=== PATIENT | male | born 1950 | race Caucasian/White ===

== ENCOUNTER 2017-04-25 13:21 | Emergency (ER) | payer OTHER, MEDICARE, SELFPAY ==
[2017-04-25 13:22] VITALS: BP 126/67; PULSE 65; RESP 16; TEMP 36.8; O2SAT 97; BMI 29.6
--- NOTE | 2017-04-25 13:43 | RAD_ITS ---
STUDY: X-RAY - LEFT FOOT CLINICAL: Male, 66 years old. Severe pain being and little toe. Bruising. TECHNIQUE: 3 view(s) of the foot. COMPARISON: None. FINDINGS: Normal talus, calcaneus, and tarsal bones. Normal visualized subtalar, talonavicular, calcaneocuboid, tarsal and tarsometatarsal articulations. Normal metatarsi. Mild narrowing of the metatarsophalangeal joint of the great toe. Normal tibial and fibular sesamoid bones. Normal interphalangeal joint of the great toe. Normal phalanges of the great toe. Normal second through fifth metatarsophalangeal joints. Normal interphalangeal joints and phalanges of the lesser toes. The soft tissue structures are unremarkable. RAD/Foot min 3 Views IMPRESSION: 1. No acute fracture or dislocation of the left foot. 2. 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 Electronically Signed: Mor Wakefield MD at 14:20 EST , Service support ,
--- NOTE | 2017-04-25 13:46 | ED.VISSUMM ---
- ER Visit Summary Date of Service: 04/25/17 Chief Complaint: Bruising on the foot History of Present Illness: The patient is a 66 M presents to the emergency department with color change of his first and fifth toes on his left foot. The patient saw podiatry about a week ago for the same. He thought it may be because his shoes were too tight. He states he has been wearing them. He states that when he takes them off, the color is normal, but as he puts his foot up, he will notice that his toes appear bruised. It is only the first and fifth toe are most of the pressure is at. He states he has been taking ibuprofen with little improvement. He denies any sudden onset pain. The pain is better when he raises his foot. He denies any trauma. The patient has no history of peripheral vascular disease, but has had questionable prior NC. Physical Examination: Vital signs reviewed General: Well-nourished, well-developed Head: Normocephalic, atraumatic Eyes: Pupils equal and reactive, extraocular muscles intact Neck, supple, no lymphadenopathy Heart: Regular rate and rhythm Respiratory: No distress, clear bilaterally Abdomen: Soft, nontender, nondistended, no peritoneal signs Back: Nontender Extremities: Patient has ecchymosis of the first and fifth toes on the left foot. He has 2+ DP and PT pulses. There is normal capillary refill within the toes. Sensation is preserved. The skin is intact. Skin: Normal color no rash Neuro: Alert and oriented, no focal or lateralizing deficits Test Results: [] Emergency Department Course and Treatment: There is no evidence of vascular insufficiency. He has normal capillary refill and normal pulses of the lower extremities. It does appear to be straightforward bruising. Without definitive history of trauma, I did obtain an x-ray. There is no evidence of acute fracture. I do suspect that where his ecchymosis is this is likely from the toe box of his shoe. Again, I do not suspect a vascular insufficiency. I will place the patient in a postop shoe to relieve the tension. He will be discharged home. Treatment Plan: [] Disposition: Discharged Impression: 1. Left foot contusion This note was generated with [employer] dictation software. It may contain incorrect words, spelling, and punctuation that were not noted in review of the chart prior to signing ED Disposition - Plan for ED Patient: Chief Complaint: Lower Extremity Injury Instructions: ED Contusion Lower Ext Referrals: Pee Kohler [Primary Care Provider] -
[2017-04-25 14:50] VITALS: BP 151/68; PULSE 82; RESP 18
== END 2017-04-25 14:51 | disposition home or self-care (01) ==
LOC: ED 13:57
PROVIDERS: Emergency Provider Emergency Medicine
DX: S90.112A Contusion of left great toe without damage to nail, initial encounter (principal); S90.122A Contusion of left lesser toe(s) without damage to nail, initial encounter; I25.10 Atherosclerotic heart disease of native coronary artery without angina pectoris; I25.2 Old myocardial infarction; I10 Essential (primary) hypertension; Z87.891 Personal history of nicotine dependence; X58.XXXA Exposure to other specified factors, initial encounter; Y93.89 Activity, other specified; Y92.89 Other specified places as the place of occurrence of the external cause; Y99.8 Other external cause status
CPT/HCPCS: 73630; 99283

== ENCOUNTER → 2017-05-06 10:39 | Outpatient (CLI) | payer OTHER, MEDICARE, SELFPAY ==
--- NOTE | 2017-05-06 16:20 | LEAS_ITS ---
Arterial Study - Arterial Study Arterial Study: Bilateral extremity noninvasive arterial exam at rest Right lower extremity The right PT and DP ankle-brachial indices at rest are 1.5 and 1.05 respectively. The digital indices are moderately low at 0.52. The Doppler waveforms for the right posterior tibial and dorsalis pedis are both triphasic. Volume pulse recordings demonstrate nice waveforms low thigh calf and ankle. Digital waveforms are significantly depressed. Digital waveforms notable for depression mostly among the first digit with otherwise relatively well maintained waveforms throughout digits 2 through 5. Left lower extremity Left low thigh index is 1.18. The calf index is 0.71. The left PT and DP ankle -brachial indices at rest are 0.63 and 0.7 with a digital index low at 0.17. The left posterior tibial and dorsalis pedis waveforms are biphasic. The volume pulse recordings suggest reasonable waveforms in the low thigh. The calf waveform is diminished. Ankle waveforms are mildly diminished. Digital waveforms significantly depressed particularly in the first and fifth digits. Impression right lower extremity resting ankle brachial indices and waveforms are normal. Digital findings would suggest significant small vessel disease of the right first digit. Left lower extremity suggest clinically significant occlusive disease of the superficial femoral artery. Findings would be within range of vascular claudication. In addition distally the small vessel digital waveforms of the first and fifth digits are markedly abnormal consistent with distal small vessel disease. Edgard Christiansen M.D., F.A.C.S.
== END ==
DX: I77.1 Stricture of artery (principal)
CPT/HCPCS: 93923

== ENCOUNTER → 2017-05-24 09:52 | Outpatient (CLI) | payer OTHER, MEDICARE, SELFPAY ==
[2017-05-24 12:24] LABS: Cholesterol 199 mg/dL (200); High Density Lipoprotein 37 mg/dL; Triglycerides 223 mg/dL; Very Low Density Lipoprotein 45 mg/dL (5-40)
== END ==
PROVIDERS: Visit Provider Surgery
DX: I25.10 Atherosclerotic heart disease of native coronary artery without angina pectoris (principal)
CPT/HCPCS: 36415; 80061

== ENCOUNTER → 2017-06-03 08:53 | Outpatient (CLI) | payer OTHER, MEDICARE, SELFPAY ==
--- NOTE | 2017-06-03 08:54 | CDU_ITS ---
Reason For Study: Carotid bruit Rt. Velocities/BP Lt. Velocities/BP Prox CCA 80.9/13.5 cm/sec. Prox CCA 83.8/18.8 cm/sec. Mid CCA 89.1/18.2 cm/sec. Mid CCA 90.3/19.3 cm/sec. Dist CCA 96.7/19.3 cm/sec. Dist CCA 89.7/22.3 cm/sec. Prox ICA 78.6/22.3 cm/sec. Prox ICA 86.2/22.9 cm/sec. Mid ICA 92.0/19.9 cm/sec. Mid ICA 74.5/22.3 cm/sec. Dist ICA 65.8/16.8 cm/sec. Dist ICA 65.7/22.3 cm/sec. Rt. ICA/CCA = 1.0. Lt. ICA/CCA = .95. Prox ECA 112.0/17.0 cm/sec. Prox ECA 104.0/12.3 cm/sec. Rt. Vert. 44.6/13.5 cm/sec. Lt. Vert. 35.0/8.3 cm/sec. Right Extracranial There is intimal thickening but no significant atherosclerotic plaque noted in the right common carotid artery. There is homogeneous, smooth atherosclerotic plaque noted in the right internal carotid artery. There is no significant atherosclerotic plaque noted in the right external carotid artery. Antegrade flow is noted in the right vertebral artery. Left Extracranial There is homogeneous, smooth atherosclerotic plaque noted in the left common carotid artery. There is no significant atherosclerotic plaque noted in the left internal carotid artery. There is no significant atherosclerotic plaque noted in the left external carotid artery. Antegrade flow is noted in the left vertebral artery. Procedure Carotid Duplex [id number]. Exam performed in department. Interpretation Summary Smooth right right internal carotid plague with <50% stenosis. Intimal thickening of the left internal carotid with <50% stenosis. Normal flow bilateral external carotids Patent and antegrade vertebrals bilaterally Ordering Physician: Edgard Christiansen Referring Physician: Antonio Kohler M.D. Performed By: Desiree Chin RVT
--- NOTE | 2017-06-03 08:54 | AAAS_ITS ---
Reason For Study: Embolic event Aorta Measurements Aorta Doppler Measurements Proximal aorta measures1.9 x 1.9cm. in cross- Peak systolic flow velocities within the proximal sectional axis. aorta measure 71.1 cm/sec. Proximal aorta measures2.0cm. in longitudinal Peak systolic flow velocities within the mid axis. aorta measure 57.5 cm/sec. Mid aorta measures2.3 x 2.4cm. in cross-sectionalPeak systolic flow velocities within the distal axis. aorta measure 62.9 cm/sec. Mid aorta measures2.4cm. in longitudinal axis. Distal aorta measures2.0 x 2.3cm. in cross- sectional axis. Distal aorta measures2.3cm. in longitudinal axis. Left Iliac Artery Left iliac artery measures 1.6 cm. in the longitudinal axis. Left iliac artery measures 1.6 x 1.6 cm. in the cross-sectional axis. Peak systolic velocity in the left iliac artery measures 137.0 cm/sec. Right Iliac Artery Right iliac artery measures 1.7 cm. in the longitudinal axis. Right iliac artery measures 1.6 x 1.6 cm. in the cross-sectional axis. Peak systolic velocity in the right iliac artery measures 133.0 cm/sec. Procedure Aorta IVC Iliac vasculature or bypass grafts [id number]. Exam performed in department. Interpretation Summary No evidence for aortic aneurysm with mild irregular abdominal aortic plague. 2.3 x 2.4cm Normal bilateral iliacs 1.6 cm on left and 1.7cm on right Ordering Physician: Edgard Christiansen Referring Physician: Antonio Kohler M.D. Performed By: Desiree Chin RVT
== END ==
PROVIDERS: Visit Provider Surgery
DX: I74.3 Embolism and thrombosis of arteries of the lower extremities (principal); R09.89 Other specified symptoms and signs involving the circulatory and respiratory systems; L81.9 Disorder of pigmentation, unspecified
CPT/HCPCS: 76706; 93880

== ENCOUNTER 2017-06-07 07:56 | Day surgery (SDC) | payer OTHER, MEDICARE, SELFPAY ==
[2017-06-04 08:20] VITALS: BMI 29.5
[2017-06-07 08:16] LABS: Hematocrit 47.2 % (40-54); Hemoglobin 15.9 g/dl (13.0-16.5); Mean Corp Hgb Conc 33.7 g/gl (32-36); Mean Corpuscular Hgb 30.2 pg (27.0-32.0); Mean Corpuscular Volume 89.6 fL (80-94); Mean Platelet Vol. 9.8 fl (6.2-12.0); Platelet Count 296 K/mm3 (150-450); RBC Distribution Width CV 14.7 % (11.6-14.6); RBC Distribution Width SD 48.3 fl (35.1-43.9); Red Blood Count 5.27 M/mm3 (4.6-6.2); White Blood Count 8.2 K/mm3 (4.4-11.0)
[2017-06-07 08:18] LABS: Scan Indicated on CBC? Y/N NO
[2017-06-07 08:32] LABS: Anion Gap 5 (5-15); BUN 17 mg/dL (7-18); BUN/Creat Ratio 14.7 RATIO (10-20); Calcium,Total 8.7 mg/dL (8.5-10.1); Chloride 110 mmol/L (98-107); Creatinine, Serum 1.16 mg/dL (0.70-1.30); EST Glomerular Filtration Rate 66 mL/min (>60); Est Glom Filt Rate - Afr Amer 80 mL/min (>60); Estimated Creatinine Clearance 64.91 ml/min; Glucose 144 mg/dL (74-106); Potassium 4.2 mmol/L (3.5-5.1); Sodium Level 143 mmol/L (136-145)
--- NOTE | 2017-06-07 11:34 | PCM.OPRPT ---
Problem List (1) PAD (peripheral artery disease) Status: Acute Report of Operation Date of Procedure: 06/07/17 Pre-Operative Diagnosis: Critical ischemia left foot Post-Operative Diagnosis: Left superficial femoral artery occlusion. Minimal ectasia of bilateral external iliac arteries Surgery/Procedure Performed:: Abdominal pelvic bilateral lower extremity arteriogram. Left superficial femoral artery 4 x 2 Powerflex angioplasty. Left superficial femoral artery LXM turbo Hawk atherectomy. Left superficial femoral artery 6 x 60 mm Lutonix angioplasty Description of Surgical Findings:: Timeout and informed consent was obtained. 66-year-old gentleman was taken to the special procedures lab. He was placed on the table. Bilateral groins were sterilely prepped and draped. He received 50 mcg of fentanyl 2 mg Versed is intravenous sedation. Under ultrasound inspection the right groin was inspected the right common femoral artery identified 2% lidocaine was instilled under ultrasound guidance. Under ultrasound guidance 2% lidocaine was instilled. Micropuncture needle was inserted under ultrasound guidance. Micropuncture wire inserted. A 6 [place] short sheath dilator was inserted 035 angled Glidewire was used to place a 5 [place] universal flush catheter in the abdominal aorta at the level of the renals. Using Visipaque contrast the rate of 15 cc a second for 20 cc an AP aortogram was obtained. The catheter was then withdrawn to the left external iliac and using a angled Glidewire the catheter was advanced to the left distal external iliac static views of the left thyroid obtained. Then using the Glidewire the catheter was advanced in the left superficial femoral artery. Static views were then obtained of the left lower extremity. Having achieved this there is evidence of occlusion of the left mid to distal superficial femoral artery. So initially placed an 035 Magic wire I then initially placed a 6 [place] 45 cm sheath. I then used a 018 Quick cross catheter and a 014 command wire gain access to the area of complete occlusion. I then placed an 035 Quick cross catheter. Placed an 035 Magic wire. I used a exchange sheath exchange out for a 7 [place] destination sheath. I then performed 4 x 4 millimeter Powerflex angioplasty. Imaging demonstrated minimal improvement but now patency of the lumen. I then used the 4 x 40 mm balloon to be a carrier for a 6 mm spider wire which I placed the level of the popliteal. It is of note that as soon as the larger sheaths 6 [place] sheath were then I gave 10,000 units and based upon ongoing ACT measurements I gave an additional 2000 units of heparin in 1000 unit aliquots. I then performed LXM [place] Hawk atherectomy of the area of SFA occlusion. Proximal to this there was a focal area of calcification that I treated. Distally there appear to be some exophytic plaque and possibly thrombus which I treated. After several passes in good material being obtained the patient was carefully monitored. I continue to obtain spot images assuring no compromise. He tolerated that well. After I felt that I done a significant amount of debulking I then placed a 6 x 60 mm Lutonix and perform balloon angioplasty up to 12 dk of pressure. I believe that the size of the vessel actually likely was 7 mm but I did not want to over size after the reasonably aggressive atherectomy. Upon completion the area of complete occlusion was completely resolved. There is a small area of dissection just distally to this but is not flow limiting. I did not feel that additional treatment required at this setting. I finished images of the left lower extremity then we withdrew the 7 [place] destination sheath of the right external reactive be obtained static views of the right lower extremity. Having achieved that I then used a minx device. I put the minx sheath and had good blood flow secure that device. I inserted the minx balloon. Balloon was inflated and withdrawn. Good capture was felt to been achieved. Then the material was deployed the device was allowed to rest. The balloon was deflated. The device was withdrawn. But the minx thrombostatic material seemed to be exposed with the sheath. So direct pressure was held for hemostasis. I then at this time did give 20 mg of protamine to assist. Blood loss minimal he tired procedure well very comfortable with the left foot very viable he was taken to recovery or insect condition apparent complication Images demonstrate widely patent abdominal aorta and bilateral renals. There is very mild ectasia of bilateral external iliacs. I did not demonstrate any definitive plaque ulceration or occlusion. The left mid to distal superficial femoral artery is occluded over a length of about 3-1/2 cm. Collateral flow is identified. There is initial three-vessel runoff to the left lower extremity. The right lower extremity has a patent superficial femoral artery popliteal and three-vessel runoff. Subsequent to the angioplasty and atherectomy and drug-coated balloon treatment of the left superficial femoral artery there is now resolved occlusion. There is limited nonflow limiting dissection. Impression successfully treated occluded left superficial femoral artery. Bilateral lower extremity suggest patent three-vessel infrageniculate runoff. There is very minimal ectasia bilateral external iliacs. I suspect that the occlusion of the left superficial femoral artery or possible thrombus related to this was likely the source of the emboli that occurred to the toes of the patient's left foot causing him to present for treatment. Edgard Christiansen M.D., F.A.C.S.
[2017-06-07 11:40] LABS: ACT Activated Clotting Time 131 sec (74-137)
[2017-06-07 11:40] LABS: ACT Activated Clotting Time 246 sec (74-137)
--- NOTE | 2017-06-07 11:47 | OP.PCM_ITS ---
Problem List (1) PAD (peripheral artery disease) Status: Acute Report of Operation Date of Procedure: 06/07/17 Pre-Operative Diagnosis: Critical ischemia left foot Post-Operative Diagnosis: Left superficial femoral artery occlusion. Minimal ectasia of bilateral external iliac arteries Surgery/Procedure Performed:: Abdominal pelvic bilateral lower extremity arteriogram. Left superficial femoral artery 4 x 2 Powerflex angioplasty. Left superficial femoral artery LXM turbo Hawk atherectomy. Left superficial femoral artery 6 x 60 mm Lutonix angioplasty Description of Surgical Findings:: Timeout and informed consent was obtained. 66-year-old gentleman was taken to the special procedures lab. He was placed on the table. Bilateral groins were sterilely prepped and draped. He received 50 mcg of fentanyl 2 mg Versed is intravenous sedation. Under ultrasound inspection the right groin was inspected the right common femoral artery identified 2% lidocaine was instilled under ultrasound guidance. Under ultrasound guidance 2% lidocaine was instilled. Micropuncture needle was inserted under ultrasound guidance. Micropuncture wire inserted. A 6 [place] short sheath dilator was inserted 035 angled Glidewire was used to place a 5 [place] universal flush catheter in the abdominal aorta at the level of the renals. Using Visipaque contrast the rate of 15 cc a second for 20 cc an AP aortogram was obtained. The catheter was then withdrawn to the left external iliac and using a angled Glidewire the catheter was advanced to the left distal external iliac static views of the left thyroid obtained. Then using the Glidewire the catheter was advanced in the left superficial femoral artery. Static views were then obtained of the left lower extremity. Having achieved this there is evidence of occlusion of the left mid to distal superficial femoral artery. So initially placed an 035 Magic wire I then initially placed a 6 [place] 45 cm sheath. I then used a 018 Quick cross catheter and a 014 command wire gain access to the area of complete occlusion. I then placed an 035 Quick cross catheter. Placed an 035 Magic wire. I used a exchange sheath exchange out for a 7 [place] destination sheath. I then performed 4 x 4 millimeter Powerflex angioplasty. Imaging demonstrated minimal improvement but now patency of the lumen. I then used the 4 x 40 mm balloon to be a carrier for a 6 mm spider wire which I placed the level of the popliteal. It is of note that as soon as the larger sheaths 6 [place] sheath were then I gave 10,000 units and based upon ongoing ACT measurements I gave an additional 2000 units of heparin in 1000 unit aliquots. I then performed LXM [place] atherectomy of the area of SFA occlusion. Proximal to this there was a focal area of calcification that I treated. Distally there appear to be some exophytic plaque and possibly thrombus which I treated. After several passes in good material being obtained the patient was carefully monitored. I continue to obtain spot images assuring no compromise. He tolerated that well. After I felt that I done a significant amount of debulking I then placed a 6 x 60 mm Lutonix and perform balloon angioplasty up to 12 dk of pressure. I believe that the size of the vessel actually likely was 7 mm but I did not want to over size after the reasonably aggressive atherectomy. Upon completion the area of complete occlusion was completely resolved. There is a small area of dissection just distally to this but is not flow limiting. I did not feel that additional treatment required at this setting. I finished images of the left lower extremity then we withdrew the 7 [place] destination sheath of the right external reactive be obtained static views of the right lower extremity. Having achieved that I then used a minx device. I put the minx sheath and had good blood flow secure that device. I inserted the minx balloon. Balloon was inflated and withdrawn. Good capture was felt to been achieved. Then the material was deployed the device was allowed to rest. The balloon was deflated. The device was withdrawn. But the minx thrombostatic material seemed to be exposed with the sheath. So direct pressure was held for hemostasis. I then at this time did give 20 mg of protamine to assist. Blood loss minimal he tired procedure well very comfortable with the left foot very viable he was taken to recovery or insect condition apparent complication Images demonstrate widely patent abdominal aorta and bilateral renals. There is very mild ectasia of bilateral external iliacs. I did not demonstrate any definitive plaque ulceration or occlusion. The left mid to distal superficial femoral artery is occluded over a length of about 3-1/2 cm. Collateral flow is identified. There is initial three-vessel runoff to the left lower extremity. The right lower extremity has a patent superficial femoral artery popliteal and three-vessel runoff. Subsequent to the angioplasty and atherectomy and drug-coated balloon treatment of the left superficial femoral artery there is now resolved occlusion. There is limited nonflow limiting dissection. Impression successfully treated occluded left superficial femoral artery. Bilateral lower extremity suggest patent three-vessel infrageniculate runoff. There is very minimal ectasia bilateral external iliacs. I suspect that the occlusion of the left superficial femoral artery or possible thrombus related to this was likely the source of the emboli that occurred to the toes of the patient's left foot causing him to present for treatment. Edgard Christiansen M.D., F.A.C.S.
[2017-06-07 15:00] VITALS: BP 149/74; PULSE 57; RESP 18; TEMP 36.6; O2SAT 95
[2017-06-07 16:00] VITALS: BP 153/68; PULSE 47; RESP 18; TEMP 36.6; O2SAT 94
[2017-06-07 17:00] VITALS: BP 165/75; PULSE 48; RESP 18; TEMP 36.4; O2SAT 97
[2017-06-07 17:50] VITALS: BP 158/70; PULSE 60; RESP 18; TEMP 36.6; O2SAT 96
--- NOTE | 2017-06-07 18:02 | NURSING ---
AMBULATED PT WITH NO COMPLICATIONS. RIGHT GROIN SITE SOFT AND DSG C/D/I
[2017-06-08 07:20] LABS: ACT Activated Clotting Time 246 sec (74-137)
== END 2017-06-07 18:10 | disposition home or self-care (01) ==
LOC: CLSP 07:56 → PCU 14:43
PROVIDERS: Visit Provider Surgery
DX: I73.9 Peripheral vascular disease, unspecified (principal); J44.9 Chronic obstructive pulmonary disease, unspecified; I25.10 Atherosclerotic heart disease of native coronary artery without angina pectoris; I25.2 Old myocardial infarction; F17.200 Nicotine dependence, unspecified, uncomplicated; Z79.82 Long term (current) use of aspirin
CPT/HCPCS: 36200; 36245; 36246; 36415; 37225; 75625; 75716; 76937; 80048; 85027; 85347; 99152; 99153; C1760; C2623; J3010; J7030; J7040; Q9967; C1714; C1725; C1769; C1884; C1887; C1894

== ENCOUNTER → 2017-07-01 11:04 | Outpatient (CLI) | payer OTHER, MEDICARE, SELFPAY ==
--- NOTE | 2017-07-02 05:26 | LEAS ---
Arterial Study - Arterial Study Arterial Study: Bilateral lower extremity noninvasive arterial exam with exercise Patient with history of left lower extremity endovascular intervention/angioplasty Claudication Impression right lower extremity The right PT and DP ankle-brachial indices at rest are 1.27 and 1.25 respectively with a slightly diminished digital index of 0.55. The right PT and DP ankle-brachial Doppler waveforms are triphasic. Volume pulse recordings demonstrate normal amplification the calf the ankle waveforms are well maintained on the digital waveforms are significantly depressed. With exercise the right SIDNEY goes from resting 1.272 immediately after exercise at 1.31 which is normal. Left lower extremity The left PT and DP ankle-brachial indices at rest are 1.06 and 1.2 respectively the digital index 0.55 the left posterior tibial and dorsalis pedis Doppler waveforms are triphasic volume pulse recordings demonstrate normal amplification of the calf the ankle and digits have normal waveforms with exercise left SIDNEY goes from resting 1.2 immediately after exercise at 1.23 Impression Normal bilateral lower extremity large vessel noninvasive exam. Normal response to exercise. Abnormal digital waveforms on the right consistent with distal small vessel disease. Mild small vessel disease distally on the left Edgard Christiansen M.D., F.A.C.S.
--- NOTE | 2017-07-02 05:29 | LEAS_ITS ---
Arterial Study - Arterial Study Arterial Study: Bilateral lower extremity noninvasive arterial exam with exercise Patient with history of left lower extremity endovascular intervention/ angioplasty Claudication Impression right lower extremity The right PT and DP ankle-brachial indices at rest are 1.27 and 1.25 respectively with a slightly diminished digital index of 0.55. The right PT and DP ankle-brachial Doppler waveforms are triphasic. Volume pulse recordings demonstrate normal amplification the calf the ankle waveforms are well maintained on the digital waveforms are significantly depressed. With exercise the right SIDNEY goes from resting 1.272 immediately after exercise at 1.31 which is normal. Left lower extremity The left PT and DP ankle-brachial indices at rest are 1.06 and 1.2 respectively the digital index 0.55 the left posterior tibial and dorsalis pedis Doppler waveforms are triphasic volume pulse recordings demonstrate normal amplification of the calf the ankle and digits have normal waveforms with exercise left SIDNEY goes from resting 1.2 immediately after exercise at 1.23 Impression Normal bilateral lower extremity large vessel noninvasive exam. Normal response to exercise. Abnormal digital waveforms on the right consistent with distal small vessel disease. Mild small vessel disease distally on the left Edgard Christiansen M.D., F.A.C.S.
== END ==
PROVIDERS: Visit Provider Surgery
DX: I73.9 Peripheral vascular disease, unspecified (principal)
CPT/HCPCS: 93923

== ENCOUNTER 2017-07-09 03:01 | Inpatient (IN) | payer OTHER, MEDICARE, SELFPAY ==
[2017-07-09] VITALS (11 sets, daily range): BP systolic 106–129; BP diastolic 55–70; PULSE 58–108; RESP 16–22; TEMP 36.6–39.3; O2SAT 91–97; BMI 28.8; BMI 27.2
--- NOTE | 2017-07-09 03:04 | EKG12_ITS ---
Test Reason : Blood Pressure : / mmHG Vent. Rate : 104 BPM Atrial Rate : 104 BPM P-R Int : 172 ms QRS Dur : 112 ms QT Int : 382 ms P-R-T Axes : 062 -68 085 degrees QTc Int : 502 ms Sinus tachycardia Left axis deviation /LAHB Incomplete left bundle branch block Abnormal ECG Confirmed by JUDAH BREWSTER ([id number]), acquisition editor RADHA CARRANZA ([id number] on 07/13/2017 2:40:06 PM Referred By: Edgard Christiansen Confirmed By:JUDAH BREWSTER
--- NOTE | 2017-07-09 03:04 | RAD_ITS ---
STUDY: X-RAY CHEST REASON FOR EXAM: Male, 66 years old. Sweating and shortness of breath. TECHNIQUE: Single AP portable view of the chest. COMPARISON: Prior comparison studies are not available for review at this time. FINDINGS: There are slightly prominent markings probably chronic. No focal infiltrate is seen. There is no demonstrated pleural abnormality. Normal size heart. Normal mediastinum and izabella. Normal visualized pulmonary arteries. There is mild atherosclerotic tortuosity of the aortic arch and descending thoracic aorta. There are degenerative changes of the visualized thoracic spine. There are mild degenerative changes in the right acromioclavicular joint. There is no demonstrated abnormality of the visualized soft tissue structures of the upper abdomen. RAD/Chest 1 View (Portable) IMPRESSION: No active pulmonary disease. Electronically Signed: Jl Talley MD at 3:23 EDT Tel , Service support ,
--- NOTE | 2017-07-09 03:07 | NURSING ---
NO OLD EKG
[2017-07-09] MEDS: Aspirin 81 MG TAB.CHEW 324 MG PO (03:13)
--- NOTE | 2017-07-09 03:26 | ED.VISSUMM ---
- ER Visit Summary Date of Service: 07/09/17 Chief Complaint: Shortness of breath History of Present Illness: The patient is a 66 M who presents with shortness of breath. states over the past couple of days he has not been feeling well. He has been having issues with constipation and abdominal pain. She was in the other room early this morning when she knows that he was having trouble breathing and he was exhaling very hard. He has no history of COPD. He does not wear home oxygen. He currently denies any chest pain. He had a recent femoral artery ballooning for a critical stenosis that was causing limb ischemia. There have been no issues with that. did note that he was confused this morning and she called EMS. Physical Examination: Vital signs are reviewed and are remarkable for temperature of 102.8 [place] gentleman who is mildly diaphoretic. HEENT exam unremarkable. Heart is tachycardic and regular rhythm without murmurs. Lungs are clear to auscultation bilaterally. Abdomen soft nontender. Extremities reveal no edema. He has good sensation pulses in his feet. The groin areas are clean dry and intact without any infection. Neurologic exam reveals he is alert and oriented ?2. He thinks it is 1980. He moves all 4 extremities equally. Test Results: EKG is normal sinus rhythm with a rate of 104. No ST changes. Chest x-ray unremarkable. Labs unremarkable except for lactate 3.1. Urine is nitrite positive Emergency Department Course and Treatment: Patient was given 2 L of normal saline. Feel he has severe sepsis secondary to UTI. She will be treated with IV Rocephin and admitted to the hospital Treatment Plan: [] Disposition: Admit Impression: Severe sepsis, UTI This note was generated with [employer] dictation software. It may contain incorrect words, spelling, and punctuation that were not noted in review of the chart prior to signing ED Disposition - Plan for ED Patient: Chief Complaint: Shortness of Breath Referrals: Pee Kohler [Primary Care Provider] -
[2017-07-09 03:29] LABS: Absolute Lymphocyte Count 1.02 X10^3/ul (0.83-4.51); Absolute Neutrophil Count 8.4 X10^3/uL (2.0-7.7); Eosinophil# 0.01 X10^3/uL; Eosinophils% 0.1 % (0-5); Hematocrit 45.9 % (40-54); Hemoglobin 15.7 g/dl (13.0-16.5); Lymphocyte # 1.02 X10^3/ul (4.0); Lymphocyte % 10.4 % (19-41); Mean Corp Hgb Conc 34.2 g/gl (32-36); Mean Corpuscular Hgb 30.3 pg (27.0-32.0); Mean Corpuscular Volume 88.6 fL (80-94); Mean Platelet Vol. 9.5 fl (6.2-12.0); Monocyte# 0.36 X10^3/uL; Monocyte% 3.7 % (0-10); Neutrophil # 8.41 X10^3/uL (2.7-7.7); Neutrophil % 85.5 % (47-70); Platelet Count 226 K/mm3 (150-450); RBC Distribution Width CV 14.4 % (11.6-14.6); RBC Distribution Width SD 46.7 fl (35.1-43.9); Red Blood Count 5.18 M/mm3 (4.6-6.2); White Blood Count 9.8 K/mm3 (4.4-11.0)
[2017-07-09 03:30] LABS: POSITIVE COUNT NO; POSITIVE DIFFERENTIAL NO; POSITIVE MORPHOLOGY NO
[2017-07-09] MEDS: 0.9% Normal Saline 1,000 ML 999 ML IV ×3 (03:30→12:28)
[2017-07-09 03:51] LABS: Anion Gap 10 (5-15); BUN 15 mg/dL (7-18); BUN/Creat Ratio 12.4 RATIO (10-20); Calcium,Total 8.7 mg/dL (8.5-10.1); Chloride 108 mmol/L (98-107); Creatinine, Serum 1.21 mg/dL (0.70-1.30); EST Glomerular Filtration Rate 63 mL/min (>60); Est Glom Filt Rate - Afr Amer 77 mL/min (>60); Estimated Creatinine Clearance 62.23 ml/min; Glucose 153 mg/dL (74-106); Potassium 3.9 mmol/L (3.5-5.1); Sodium Level 140 mmol/L (136-145)
[2017-07-09 03:57] LABS: Lactic Acid 3.1 mmol/L (0.4-2.0)
--- NOTE | 2017-07-09 04:00 | ED.RN ---
LAB CALLS WITH CRITICAL RESULT, LACTIC ACID 3.1, DR. CHRISTENSEN MADE AWARE.
[2017-07-09 04:39] LABS: Color, Urine Amber (Yellow); Glucose, Dipstick Normal (Normal); Ketone-Dipstick 5 mg/dl (Negative); Leukocyte Esterase-Dipstick 25 /ul (Negative); Nitrite-Dipstick Positive (Negative); Occult Blood-Urine 25 /ul (Negative); Protein-Dipstick 30 mg/dl (Negative); Urine Clarity Sl. Cloudy (Clear); Urine Urobilinogen 4 mg/dl (Normal)
[2017-07-09 04:44] LABS: Mucous, Urine 2+ /hpf (<or=2+); Urine Bilirubin Dipstick 1 mg/dL (Negative)
[2017-07-09 04:45] LABS: Bacteria RARE /hpf (None Seen); Red Blood Cells-Urine 0-5 SEEN /hpf (0-5); Squamous Epithelial Cells - UA 0-5 SEEN /hpf (0-5); White Blood Cells 0-5 SEEN /hpf (0-5)
--- NOTE | 2017-07-09 05:51 | HP.PCM_ITS ---
Problem List (1) COPD exacerbation Status: Acute (2) UTI (urinary tract infection) Status: Acute (3) Hyperlipidemia Status: Chronic (4) Atherosclerotic heart disease of [place] coronary artery without angina pectoris Status: Chronic (5) Old myocardial infarction Status: Chronic (6) Tobacco abuse Status: Acute (7) COPD (chronic obstructive pulmonary disease) Status: Acute Qualifiers: (8) PAD (peripheral artery disease) Status: Acute (9) Inguinal hernia of left side without obstruction or gangrene Status: Acute History of Present Illness Date of Admission: 07/09/17 Chief Complaint: Shortness of breath today The patient is a 66 year old M with history of COPD mentioned in our record although patient denies, history of chronic smoking about 46 pack years of smoking was brought in by EMS for severe shortness of breath and labored breathing. As per the , patient has been short of breath for last 2 days and not able to sleep well although patient denies. Denies cough, fever or chills. No chest pain. In the ED, found to have fever 102.8 Fahrenheit, tachycardic 108/min, tachypneic 22/min and pulse ox 91% on room air. EKG sinus tachycardia, LAD with incomplete left bundle branch block. [] Past Medical History Past Medical History (Chronic Problems): Chronic Problems (Last Reviewed 06/17/17 @ 09:53 by Francesca Hall) Hyperlipidemia (Chronic) Atherosclerotic heart disease of [place] coronary artery without angina pectoris (Chronic) Old myocardial infarction (Chronic) Allergies clopidogrel [From Plavix] Allergy (Mild, Verified 07/09/17 03:07) rash Home Medications: Ambulatory Orders Medication Instructions Recorded aspirin 81 mg tablet,delayed 81 mg PO QDAY tab 05/21/17 release Smoking Status: Current every day smoker - *Family History Paternal History Items: No pertinent history Review of Systems Constitutional: Denies: Chills, Fever, Weight Change HEENT: Denies: Head Aches, Sinus Congestion, Sinus Drainage Cardiovascular: Denies: Chest Pain, Palpitations Respiratory: Reports: Shortness of breath upon exertion, Wheezing. Denies: Cough, Shortness of breath at rest, Sputum production Gastrointestinal: Denies: Abdominal Pain, Nausea, Vomiting Genitourinary: Denies: Dysuria, Frequency, Hematuria Musculoskeletal: Denies: Joint Pain, Joint Tenderness Skin: Denies: Rash, Wounds Neurological: Denies: Numbness, Tingling, Focal weakness Psychiatric: Denies: Anxiety, Depression, Homicidal Ideations, Suicidal Ideations Hematologic/ Lymphatic: Denies: Easy Bruising, Easy Bleeding VTE Information - Inpt Only VTE Present on Admission: No VTE Mechan Device Prophylaxis: SCD's VTE Pharm Prophylaxis ordered?: Yes Patient Problems: Active and Suspected Problems (Last Reviewed 06/17/17 @ 09:53 by Francesca Hall) COPD exacerbation (Acute) UTI (urinary tract infection) (Acute) - Physical Exam General: Alert, Oriented x3, Cooperative HEENT: Atraumatic, PERRLA, EOMI, Normocephalic Oral: Dry Mucosa Neck: Supple, No JVD, Negative Carotid Bruits Lungs: Diminished, Tachypneic, Wheezes - Expiratory wheezing Cardiovascular: Regular rate, Regular Rhythm, Normal S1, Normal S2, No murmurs Abdomen: Bowel Sounds Present, Soft, Non Tender, Non-Distended Extremities: No edema, Capillary Refill Less than 3 Seconds Skin: No rashes, No breakdown Musculoskeletal: No Tenderness to Palpation of Joints or Extremities, Arthritic Changes Neurological: Cranial nerves II-XII grossly intact Psych/Mental Status: Normal Affect, Appropriate Vital Signs Temp Pulse Resp BP Pulse Ox 98.1 F 72 20 H 117/59 L 93 07/09/17 05:23 07/09/17 05:23 07/09/17 05:23 07/09/17 05:23 07/09/17 05:23 Oxygen Flow Rate (L/min) 2 Oxygen Delivery Method Nasal Cannula Weight: 206 lb 12.697 oz Body Mass Index (BMI) 28.8 Laboratory Tests Past 24 Hrs 07/09/17 07/09/17 07/09/17 03:05 03:05 03:05 WBC 9.8 RBC 5.18 Hgb 15.7 Hct 45.9 MCV 88.6 MCH 30.3 MCHC 34.2 RDW 14.4 RDW Differential 46.7 H Plt Count 226 MPV 9.5 Immature Gran % (Auto) 0.300 Neut % (Auto) 85.5 H Lymph % (Auto) 10.4 L [place] % (Auto) 3.7 Eos % (Auto) 0.1 Baso % (Auto) 0.0 Absolute Neuts (auto) 8.4 H Absolute Lymphs (auto) 1.02 Total Counted Not Reportable Sodium 140 Potassium 3.9 Chloride 108 H Carbon Dioxide 22.0 Anion Gap 10 BUN 15 Creatinine 1.21 Estim Creat Clear Calc 62.23 Est GFR (MDRD) Af Amer 77 Est GFR (MDRD) Non-Af 63 BUN/Creatinine Ratio 12.4 Glucose 153 H Lactic Acid 3.1 H Calcium 8.7 Troponin I < 0.02 Urine Color Urine Clarity Urine pH Ur Specific [place] Urine Protein Urine Glucose (UA) Urine Ketones Urine Occult Blood Urine Nitrite Urine Bilirubin Urine Urobilinogen Ur Leukocyte Esterase Urine RBC Urine WBC Ur Squamous Epith Cells Urine Bacteria Urine Mucus 07/09/17 04:22 WBC RBC Hgb Hct MCV MCH MCHC RDW RDW Differential Plt Count MPV Immature Gran % (Auto) Neut % (Auto) Lymph % (Auto) [place] % (Auto) Eos % (Auto) Baso % (Auto) Absolute Neuts (auto) Absolute Lymphs (auto) Total Counted Sodium Potassium Chloride Carbon Dioxide Anion Gap BUN Creatinine Estim Creat Clear Calc Est GFR (MDRD) Af Amer Est GFR (MDRD) Non-Af BUN/Creatinine Ratio Glucose Lactic Acid Calcium Troponin I Urine Color [place] Urine Clarity Sl. Cloudy Urine pH 6.0 Ur Specific [place] 1.020 Urine Protein 30 H Urine Glucose (UA) Normal Urine Ketones 5 H Urine Occult Blood 25 H Urine Nitrite Positive H Urine Bilirubin 1 H Urine Urobilinogen 4 H Ur Leukocyte Esterase 25 H Urine RBC 0-5 SEEN Urine WBC 0-5 SEEN Ur Squamous Epith Cells 0-5 SEEN Urine Bacteria RARE Urine Mucus 2+ Assessment/Plan Active and Suspected Problems (Last Reviewed 06/17/17 @ 09:53 by Francesca Hall) COPD exacerbation (Acute) UTI (urinary tract infection) (Acute) The patient is a 66 year old M with history of COPD mentioned in our record although patient denies, history of chronic smoking about 46 pack years of smoking was brought in by EMS for severe shortness of breath and labored breathing. As per the , patient has been short of breath for last 2 days and not able to sleep well although patient denies. Denies cough, fever or chills. No chest pain. In the ED, found to have fever 102.8 Fahrenheit, tachycardic 108/min, tachypneic 22/min and pulse ox 91% on 2 L of oxygen. EKG sinus tachycardia, LAD with incomplete left bundle branch block. Lactic acid was found elevated 3.1 although WBC count normal. UA positive of nitrite and LE although WBC normal. Denies lower urinary tract symptoms. 1. Acute hypoxic respiratory failure most probably secondary to COPD exacerbation: Patient is being admitted on MedSurg floor. Oxygen therapy keep pulse ox 90%. ABG ordered to look for chronic CO2 retention. Bicarb in BMP is normal. 2. COPD: Clinically it seems patient has COPD with 46 pack years of smoking and chest x-ray shows chronic interstitial changes. Patient also had PFT but results not available. On bronchodilator. IV Solu-Medrol, Mucinex, incentive spirometry and chest physiotherapy. 3. SIRS ( fever 102.8 Fahrenheit, tachycardic 108/min, tachypneic 22/min and pulse ox 91% on 2 L of oxygen) lactic acid 3.1 possible secondary to COPD with moderate acute bronchitis/UTI: Patient started on IV Rocephin and Zithromax. Blood cultures ?2, urine culture and sputum culture ordered. Respiratory panel ordered. 4. Other chronic comorbidities include coronary artery disease, peripheral arterial disease and dyslipidemia: Patient had cardiac cath in the past and showed probably calcified artery not amenable to stent as per the history. Home medication reconciliation done. [] Laboratory Results 07/09/17 03:05: WBC 9.8, RBC 5.18, Hgb 15.7, Hct 45.9, MCV 88.6, MCH 30.3, MCHC 34.2, RDW 14.4, RDW Differential 46.7 H, Plt Count 226, MPV 9.5, Immature Gran % (Auto) 0.300, Neut % (Auto) 85.5 H, Lymph % (Auto) 10.4 L, [place] % (Auto) 3.7, Eos % (Auto) 0.1, Baso % (Auto) 0.0, Absolute Neuts (auto) 8.4 H, Absolute Lymphs (auto) 1.02, Total Counted Not Reportable 07/09/17 03:05: Sodium 140, Potassium 3.9, Chloride 108 H, Carbon Dioxide 22.0, Anion Gap 10, BUN 15, Creatinine 1.21, Estim Creat Clear Calc 62.23, Est GFR ( MDRD) Af Amer 77, Est GFR (MDRD) Non-Af 63, BUN/Creatinine Ratio 12.4, Glucose 153 H, Calcium 8.7, Troponin I < 0.02 07/09/17 03:05: Lactic Acid 3.1 H 07/09/17 04:22: Urine Color [place], Urine Clarity Sl. Cloudy, Urine pH 6.0, Ur Specific [place] 1.020, Urine Protein 30 H, Urine Glucose (UA) Normal, Urine Ketones 5 H, Urine Occult Blood 25 H, Urine Nitrite Positive H, Urine Bilirubin 1 H, Urine Urobilinogen 4 H, Ur Leukocyte Esterase 25 H, Urine RBC 0-5 SEEN, Urine WBC 0-5 SEEN, Ur Squamous Epith Cells 0-5 SEEN, Urine Bacteria RARE, Urine Mucus 2+ Clinical Impression(s) from Imaging Studies Chest X-Ray 07/09/17 03:04 IMPRESSION: No active pulmonary disease. Electronically Signed: Jl Talley MD at 3:23 EDT Tel , Service support , Code Visit Inpatient E&M: 29574 Init Hosp L3
[2017-07-09] MEDS: Ipratropium/Albuterol Sulfate 3 ML AMPUL.NEB INHALATION ×2 (06:37→18:46)
[2017-07-09 06:56] LABS: Bedside Glucose 179 mg/dL (70-110)
[2017-07-09 07:01] LABS: Allen Test POS; Base Excess -4 mmol/L (-2 to +2); Bicarbonate 20.3 mmol/L (22-26); Blood Gas Specimen Type ART; O2 Delivery Device Nasal Can; PO2 71 mmHG (75-100); SITE L Radial; SO2 95 % (95-99); Time Given 650; Total Carbon Dioxide 21 mmol/L; pCO2 29.8 mmHg (35-45); pH 7.44 (7.35-7.45)
[2017-07-09 07:04] LABS: Lactic Acid 2.8 mmol/L (0.4-2.0)
[2017-07-09 07:19] LABS: Reflex Lactate? Y
[2017-07-09] MEDS: 0.9% Normal Saline 1,000 ML 125 ML IV ×2 (07:56→20:28)
[2017-07-09] MEDS: Aspirin E.C. 81 MG Tablet PO (07:57)
[2017-07-09] MEDS: guaiFENesin 1,200 MG Tablet 1200 MG PO ×2 (07:57→22:12)
[2017-07-09] MEDS: Polyethylene Glycol 3350 17 GM PACKET PO (07:58)
[2017-07-09] MEDS: predniSONE 20 MG Tablet 40 MG PO (10:13)
[2017-07-09 10:33] LABS: Reflex Lactate? Y
[2017-07-09 11:35] LABS: Bedside Glucose 294 mg/dL (70-110)
[2017-07-09 11:37] LABS: Lactic Acid 3.1 mmol/L (0.4-2.0)
--- NOTE | 2017-07-09 11:48 | PCM.PN.HOSP ---
Patient Problems: Active and Suspected Problems (Last Reviewed 06/17/17 @ 09:53 by Francesca Hall) COPD exacerbation (Acute) UTI (urinary tract infection) (Acute) Subjective: Patient with no acute events overnight per self and per nursing report. This morning he does not recall specifically coming in and denies any complaints at this time. He was on 3 L nasal cannula but is being weaned without issue. He does not have any wheezing at this time although he does have a market tobacco use history therefore upon and there was concern for underlying COPD exacerbation as well as possible UTI as etiology for the severe septic presentation. Patient vital signs otherwise have remained appropriate, afebrile, not tachycardic, stable blood pressure but lactic acid still remains elevated at 3.1. Patient denies any dyspnea, coughing, abdominal pain, dysuria. Per admission it was primarily his that was reporting his symptoms. Objective: Physical Examination: General: awake, alert, oriented to person, place, year but again suspect confusion upon admission secondary to him not being able to recall events of the day prior, cooperative, seated upright in bed in no apparent distress. Skin: normal color, turgor, no icterus, cyanosis. HEENT: AT/NC, EOMI, PERRLA, MMM. Lungs: Diminished breath sounds throughout, greater bilateral bases, moderate effort, no rales, rhonchi or wheezing. Heart: Mildly bradycardic with regular rhythm; no gallop, rub audible. Abdomen: soft, NTTP, no suprapubic tenderness either, ND, normal BS. Extremities: no cyanosis, clubbing, or edema. Neurological: patient awake, alert, oriented x 3 noted; cognitive function despite intact orientation suspect not baseline intact; pupils equally reactive to light and accomodation; cranial nerves II-XII grossly normal, moving all 4 extremities, no focal deficits, strength mildly to moderately globally decreased. Psychiatric: affect appears normal, no acute evidence of depressive or anxiety feelings. Vitals/I&O's: Vital Signs Temp Pulse Resp BP Pulse Ox 97.8 F 58 L 16 117/57 L 94 07/09/17 11:28 07/09/17 11:28 07/09/17 11:28 07/09/17 11:28 07/09/17 11:28 Oxygen Flow Rate (L/min) 97 Oxygen Delivery Method Room Air Intake and Output for Last 24 Hours 07/07/17 07/08/17 07/09/17 23:59 23:59 23:59 Intake Total 1614 / 1614 Balance 1614 / 1614 Laboratory Results 07/09/17 10:45: Lactic Acid 3.1 H 07/09/17 11:27: POC Glucose 294 H Current Medications Acetaminophen (Tylenol) 650 mg PO Q6H PRN PRN PRN Reason: Mild Pain (scale 0-3)/T>100.7 Al Hydroxide/Mg Hydroxide (Mylanta Ii) 30 ml PO Q6H PRN PRN PRN Reason: Gastric Burning Albuterol Sulfate (Ventolin Aerosols) 2.5 mg INHALATION Q2H PRN PRN PRN Reason: SHORTNESS OF BREATH Albuterol/Ipratropium (Duoneb) 3 ml INHALATION Q6HWA.RT [facility] Aspirin (Ecotrin) 81 mg PO DAILYCM [facility] Last Admin: 07/09/17 07:57 Dose: 81 mg Bisacodyl (Dulcolax) 10 mg RECTAL DAILY PRN PRN PRN Reason: Constipation Dextrose (D50w Syringe) 0 gm IV X1 PRN; Protocol PRN Reason: Hypoglycemia Docusate Sodium (Colace) 200 mg PO BID PRN PRN PRN Reason: Constipation Glucagon () 1 mg IM .X1 PRN PRN Reason: Hypoglycemia Guaifenesin (Mucinex) 1,200 mg PO BID [facility] Last Admin: 07/09/17 07:57 Dose: 1,200 mg Sodium Chloride () 1,000 mls @ 125 mls/hr IV .Q8H [facility] Last Admin: 07/09/17 07:56 Dose: 125 mls/hr Azithromycin 500 mg/ Dextrose 255 mls @ 250 mls/hr IV Q24 [facility] Stop: 07/11/17 11:02 Last Admin: 07/09/17 10:12 Dose: 250 mls/hr Ceftriaxone Sodium (Rocephin) 1 gm in 50 mls @ 100 mls/hr IV Q24 [facility] Sodium Chloride () 1,000 mls @ 999 mls/hr IV .Q1H1M ONE Stop: 07/09/17 12:47 Insulin Aspart (Novolog Flexpen (Bkc)) 0 units SC ACHS URIEL PRN Reason: Protocol Last Admin: 07/09/17 11:30 Dose: 6 u Morphine Sulfate () 1 - 2 mg IV Q4H PRN PRN PRN Reason: Moderate Pain (pain scale 4-5) Ondansetron HCl (Zofran) 4 mg IV Q8H PRN PRN PRN Reason: Nausea Oxycodone HCl (Oxyir) 5 mg PO Q4H PRN PRN PRN Reason: Moderate Pain (pain scale 4-5) Polyethylene Glycol (Miralax) 17 gm PO DAILY [facility] Last Admin: 07/09/17 07:58 Dose: 17 gm Prednisone () 40 mg PO DAILY@0800 [facility] Last Admin: 07/09/17 10:13 Dose: 40 mg Sodium Chloride () 5 - 30 ml IV UD PRN PRN Reason: SALINE FLUSH Zolpidem Tartrate (Ambien (Generic)) 5 mg PO QHS PRN PRN PRN Reason: INSOMNIA Medical Necessity - Tobacco Use Smoking Status: Current every day smoker Tobacco Use: Cigarettes Assessment/Plan Active and Suspected Problems (Last Reviewed 06/17/17 @ 09:53 by Francesca Hall) COPD exacerbation (Acute) UTI (urinary tract infection) (Acute) The patient is a 66 y/o M w/ PMHx: Heavy Tobacco use Hx, Suspected Underlying Chronic COPD, Hx NH, HLD, PAD who presents to the [facility] ED on 07/09/17 with history of progressively worsening dyspnea with labored breathing noted per and EMS ongoing for the last 2 days, worsening with no associated marketed cough, productive sputum or fevers or chills at that time however upon ED presentation patient temperature 102.8, tachycardic and tachypneic with a pulse oximeter of 91% on room air. (1) Severe Sepsis suspected secondary to Acute on Chronic COPD Exacerbation w/ Acute Hypoxic Respiratory Failure and Possible Complicated UTI: Tachycardic, hypoxic, increased RR upon presentation, ABG w/ pO2 71, pCO2 29.8, CXR w/ chronic changes w/ repeat PA and Lateral pending, CBC on admission w/ 9.8 with L shift, LA 3.1-->2.8-->3.1. Admitted to AL, maintained on oxygen with wean to room air, continue ATC duonebs, PRN albuterol, IV methylprednisolone with prednisone transition given improvement, HOB, IS parameters, IV Azithromcyin and Rocephin with pending sputum cultures, pending respiratory viral panel, negative urine antigens, pending Bld Cx x 2 and UCx given UA ? UTI also. Will continue aggressive hydration given LA, repeat LA in 3 hours given continued elevation. Continue to monitor I/Os, transition as able pending sensitivities and speciation. Bld cx x 2 obtained in the ED. (2) Hyperglycemia: Admission glucose elevated, HgbA1c pending, ISS pending results. (3) Tobacco Abuse: Encouraged cessation, inpatient consultation per RT, NR if desired. (4) CAD, History of NH: Maintained on asa, noted plavix allergy, not on statin or BB, BP low normal. (5) Hyperlipidemia: Not on regimen, patient resistant to any regimen additions. (6) PAD: Hx LLE angioplasty, maintained on asa, not on statin, patient resistant to any regimen additions. Noted plavix allergy. (7) DVT Prophylaxis: SCDs, lovenox. Code Visit Inpatient E&M: 85491 Subs Hosp L2
--- NOTE | 2017-07-09 12:04 | PN_ITS ---
Patient Problems: Active and Suspected Problems (Last Reviewed 06/17/17 @ 09:53 by Francesca Hall) COPD exacerbation (Acute) UTI (urinary tract infection) (Acute) Subjective: Patient with no acute events overnight per self and per nursing report. This morning he does not recall specifically coming in and denies any complaints at this time. He was on 3 L nasal cannula but is being weaned without issue. He does not have any wheezing at this time although he does have a market tobacco use history therefore upon and there was concern for underlying COPD exacerbation as well as possible UTI as etiology for the severe septic presentation. Patient vital signs otherwise have remained appropriate, afebrile , not tachycardic, stable blood pressure but lactic acid still remains elevated at 3.1. Patient denies any dyspnea, coughing, abdominal pain, dysuria. Per admission it was primarily his that was reporting his symptoms. Objective: Physical Examination: General: awake, alert, oriented to person, place, year but again suspect confusion upon admission secondary to him not being able to recall events of the day prior, cooperative, seated upright in bed in no apparent distress. Skin: normal color, turgor, no icterus, cyanosis. HEENT: AT/NC, EOMI, PERRLA, MMM. Lungs: Diminished breath sounds throughout, greater bilateral bases, moderate effort, no rales, rhonchi or wheezing. Heart: Mildly bradycardic with regular rhythm; no gallop, rub audible. Abdomen: soft, NTTP, no suprapubic tenderness either, ND, normal BS. Extremities: no cyanosis, clubbing, or edema. Neurological: patient awake, alert, oriented x 3 noted; cognitive function despite intact orientation suspect not baseline intact; pupils equally reactive to light and accomodation; cranial nerves II-XII grossly normal, moving all 4 extremities, no focal deficits, strength mildly to moderately globally decreased. Psychiatric: affect appears normal, no acute evidence of depressive or anxiety feelings. Vitals/I&O's: Vital Signs Temp Pulse Resp BP Pulse Ox 97.8 F 58 L 16 117/57 L 94 07/09/17 11:28 07/09/17 11:28 07/09/17 11:28 07/09/17 11:28 07/09/17 11:28 Oxygen Flow Rate (L/min) 97 Oxygen Delivery Method Room Air Intake and Output for Last 24 Hours 07/07/17 07/08/17 07/09/17 23:59 23:59 23:59 Intake Total 1614 / 1614 Balance 1614 / 1614 Laboratory Results 07/09/17 10:45: Lactic Acid 3.1 H 07/09/17 11:27: POC Glucose 294 H Current Medications Acetaminophen (Tylenol) 650 mg PO Q6H PRN PRN PRN Reason: Mild Pain (scale 0-3)/T>100.7 Al Hydroxide/Mg Hydroxide (Mylanta Ii) 30 ml PO Q6H PRN PRN PRN Reason: Gastric Burning Albuterol Sulfate (Ventolin Aerosols) 2.5 mg INHALATION Q2H PRN PRN PRN Reason: SHORTNESS OF BREATH Albuterol/Ipratropium (Duoneb) 3 ml INHALATION Q6HWA.RT [facility] Aspirin (Ecotrin) 81 mg PO DAILYCM [facility] Last Admin: 07/09/17 07:57 Dose: 81 mg Bisacodyl (Dulcolax) 10 mg RECTAL DAILY PRN PRN PRN Reason: Constipation Dextrose (D50w Syringe) 0 gm IV X1 PRN; Protocol PRN Reason: Hypoglycemia Docusate Sodium (Colace) 200 mg PO BID PRN PRN PRN Reason: Constipation Glucagon () 1 mg IM .X1 PRN PRN Reason: Hypoglycemia Guaifenesin (Mucinex) 1,200 mg PO BID [facility] Last Admin: 07/09/17 07:57 Dose: 1,200 mg Sodium Chloride () 1,000 mls @ 125 mls/hr IV .Q8H [facility] Last Admin: 07/09/17 07:56 Dose: 125 mls/hr Azithromycin 500 mg/ Dextrose 255 mls @ 250 mls/hr IV Q24 [facility] Stop: 07/11/17 11:02 Last Admin: 07/09/17 10:12 Dose: 250 mls/hr Ceftriaxone Sodium (Rocephin) 1 gm in 50 mls @ 100 mls/hr IV Q24 [facility] Sodium Chloride () 1,000 mls @ 999 mls/hr IV .Q1H1M ONE Stop: 07/09/17 12:47 Insulin Aspart (Novolog Flexpen (Bkc)) 0 units SC ACHS URIEL PRN Reason: Protocol Last Admin: 07/09/17 11:30 Dose: 6 u Morphine Sulfate () 1 - 2 mg IV Q4H PRN PRN PRN Reason: Moderate Pain (pain scale 4-5) Ondansetron HCl (Zofran) 4 mg IV Q8H PRN PRN PRN Reason: Nausea Oxycodone HCl (Oxyir) 5 mg PO Q4H PRN PRN PRN Reason: Moderate Pain (pain scale 4-5) Polyethylene Glycol (Miralax) 17 gm PO DAILY [facility] Last Admin: 07/09/17 07:58 Dose: 17 gm Prednisone () 40 mg PO DAILY@0800 [facility] Last Admin: 07/09/17 10:13 Dose: 40 mg Sodium Chloride () 5 - 30 ml IV UD PRN PRN Reason: SALINE FLUSH Zolpidem Tartrate (Ambien (Generic)) 5 mg PO QHS PRN PRN PRN Reason: INSOMNIA Medical Necessity - Tobacco Use Smoking Status: Current every day smoker Tobacco Use: Cigarettes Assessment/Plan Active and Suspected Problems (Last Reviewed 06/17/17 @ 09:53 by Francesca Hall) COPD exacerbation (Acute) UTI (urinary tract infection) (Acute) The patient is a 66 y/o M w/ PMHx: Heavy Tobacco use Hx, Suspected Underlying Chronic COPD, Hx [place], HLD, PAD who presents to the [facility] ED on 07/09/17 with history of progressively worsening dyspnea with labored breathing noted per and EMS ongoing for the last 2 days, worsening with no associated marketed cough, productive sputum or fevers or chills at that time however upon ED presentation patient temperature 102.8, tachycardic and tachypneic with a pulse oximeter of 91% on room air. (1) Severe Sepsis suspected secondary to Acute on Chronic COPD Exacerbation w/ Acute Hypoxic Respiratory Failure and Possible Complicated UTI: Tachycardic, hypoxic, increased RR upon presentation, ABG w/ pO2 71, pCO2 29.8, CXR w/ chronic changes w/ repeat PA and Lateral pending, CBC on admission w/ 9.8 with L shift, LA 3.1-->2.8-->3.1. Admitted to [place], maintained on oxygen with wean to room air, continue ATC duonebs, PRN albuterol, IV methylprednisolone with prednisone transition given improvement, HOB, IS parameters, IV Azithromcyin and Rocephin with pending sputum cultures, pending respiratory viral panel, negative urine antigens, pending Bld Cx x 2 and UCx given UA ? UTI also. Will continue aggressive hydration given LA, repeat LA in 3 hours given continued elevation. Continue to monitor I/Os, transition as able pending sensitivities and speciation. Bld cx x 2 obtained in the ED. (2) Hyperglycemia: Admission glucose elevated, HgbA1c pending, ISS pending results. (3) Tobacco Abuse: Encouraged cessation, inpatient consultation per RT, NR if desired. (4) CAD, History of GA: Maintained on asa, noted plavix allergy, not on statin or BB, BP low normal. (5) Hyperlipidemia: Not on regimen, patient resistant to any regimen additions. (6) PAD: Hx LLE angioplasty, maintained on asa, not on statin, patient resistant to any regimen additions. Noted plavix allergy. (7) DVT Prophylaxis: SCDs, lovenox. Code Visit Inpatient E&M: 28149 Subs Hosp L2
--- NOTE | 2017-07-09 12:05 | RAD_ITS ---
STUDY: X-RAY CHEST REASON FOR EXAM: Male, 66 years old. Short of breath. Dyspnea. TECHNIQUE: Frontal and lateral views of the chest. COMPARISON: Single portable chest, July 09, 2017. FINDINGS: Again seen is mild prominence of the interstitium bilaterally and diffusely without focal alveolar opacification. There is no pneumothorax. There is no pleural effusion. Normal size heart. Normal mediastinum and izabella. Normal visualized pulmonary arteries. There is atherosclerotic tortuosity of the aortic arch and descending thoracic aorta. There are diffuse degenerative changes of the visualized thoracic spine. There is no evident acute osseous abnormality. There is no demonstrated abnormality of the visualized soft tissue structures of the upper abdomen. RAD/Chest PA and Lateral IMPRESSION: Stable exam. No evident acute cardiopulmonary disease. Chronic interstitial findings probably representing fibrosis. Electronically Signed: Warren Saenz MD at 13:59 EDT , Service support ,
--- NOTE | 2017-07-09 12:27 | CASEMGMT ---
See RN CM Assessment Link. DC PLAN: HOME DC PLAN: home on dc -If Home oxygen is recommended- [facility] or [facility] with [employer] PPO. Chiquis DUNLAPN RN ACM
[2017-07-09] MEDS: Enoxaparin 40 MG/0.4 ML Syringe SC (12:29)
[2017-07-09 12:57] LABS: Hemoglobin A1c 7.5 % (4.2-6.3)
[2017-07-09 15:24] LABS: Lactic Acid 2.7 mmol/L (0.4-2.0)
[2017-07-09 16:35] LABS: Bedside Glucose 223 mg/dL (70-110)
[2017-07-09 18:54] LABS: Reflex Lactate? Y
[2017-07-09 21:18] LABS: Lactic Acid 2.4 mmol/L (0.4-2.0)
[2017-07-09 22:31] LABS: Bedside Glucose 209 mg/dL (70-110)
[2017-07-10 02:30] VITALS: BP 123/73; PULSE 62; RESP 18; TEMP 36.8; O2SAT 96
[2017-07-10 02:45] VITALS: RESP 18; O2SAT 96
[2017-07-10] MEDS: Ceftriaxone 1 GM/50 ML BAG IV (04:27)
[2017-07-10] MEDS: 0.9% Normal Saline 1,000 ML 125 ML IV (04:27)
[2017-07-10] MEDS: Enoxaparin 40 MG/0.4 ML Syringe SC (06:40)
[2017-07-10 06:46] LABS: Bedside Glucose 153 mg/dL (70-110)
[2017-07-10 07:24] LABS: Absolute Lymphocyte Count 1.28 X10^3/ul (0.83-4.51); Absolute Neutrophil Count 12.5 X10^3/uL (2.0-7.7); Basophil# 0.01 X10^3/uL; Basophil% 0.1 % (0-1); Eosinophil# 0.01 X10^3/uL; Eosinophils% 0.1 % (0-5); Hematocrit 37.6 % (40-54); Hemoglobin 12.4 g/dl (13.0-16.5); Lymphocyte # 1.28 X10^3/ul (4.0); Lymphocyte % 8.3 % (19-41); Mean Corpuscular Hgb 29.5 pg (27.0-32.0); Mean Corpuscular Volume 89.3 fL (80-94); Mean Platelet Vol. 9.9 fl (6.2-12.0); Monocyte# 1.53 X10^3/uL; Monocyte% 9.9 % (0-10); Neutrophil # 12.53 X10^3/uL (2.7-7.7); Neutrophil % 81.3 % (47-70); Platelet Count 180 K/mm3 (150-450); RBC Distribution Width CV 14.7 % (11.6-14.6); Red Blood Count 4.21 M/mm3 (4.6-6.2); White Blood Count 15.4 K/mm3 (4.4-11.0)
[2017-07-10 07:26] LABS: Differential Indicated SCAN CRITERIA MET; POSITIVE COUNT NO; POSITIVE DIFFERENTIAL YES; POSITIVE MORPHOLOGY NO
[2017-07-10 07:30] VITALS: PULSE 55; RESP 18; O2SAT 93
[2017-07-10] MEDS: Ipratropium/Albuterol Sulfate 3 ML AMPUL.NEB INHALATION (07:30)
[2017-07-10 07:33] LABS: BUN 15 mg/dL (7-18); Calcium,Total 7.9 mg/dL (8.5-10.1); Chloride 115 mmol/L (98-107); Creatinine, Serum 0.88 mg/dL (0.70-1.30); EST Glomerular Filtration Rate 91 mL/min (>60); Est Glom Filt Rate - Afr Amer 110 mL/min (>60); Estimated Creatinine Clearance 85.57 ml/min; Glucose 140 mg/dL (74-106); Potassium 3.9 mmol/L (3.5-5.1); Sodium Level 145 mmol/L (136-145)
[2017-07-10 07:34] LABS: Anion Gap 8 (5-15)
[2017-07-10 07:35] VITALS: O2SAT 94
[2017-07-10 07:54] VITALS: BP 127/60; PULSE 60; RESP 18; TEMP 36.6; O2SAT 94
[2017-07-10] MEDS: predniSONE 20 MG Tablet 40 MG PO (08:02)
[2017-07-10] MEDS: Aspirin E.C. 81 MG Tablet PO (08:02)
[2017-07-10 09:33] LABS: Lactic Acid 1.2 mmol/L (0.4-2.0)
--- NOTE | 2017-07-10 10:50 | DCINST_ITS ---
- Discharge Diagnoses Current Active Problems: Current Active and Chronic Problems (Last Reviewed 06/17/17 @ 09:53 by Francesca Hall) (1) Severe Sepsis suspected secondary to Acute on Possibly Chronic COPD Exacerbation w/ Acute Hypoxic Respiratory Failure and Possible Complicated UTI, UCx pending upon discharge (2) Hyperglycemia w/ Newly Diagnosed Diabetes mellitus type II (HgBA1c 7.5%) (3) Tobacco Abuse (4) CAD, History of [place] (5) Hyperlipidemia (6) PAD You will use the following diet at home:: Calorie/Carbohydrate Controlled ( specify 1200, 1400, etc) - 1800 ADA and cardiac diet encouraged. Your food should be the consistency of: Regular Your liquids should be the consistency of: Regular/Thin Discharge Activity: - - Avoid aggressive activity until completed steroid taper and antibiotic therapy or cleared per your primary care physician. May resume sexual activity in: 10-14 days Weight Bearing Status: Weight bearing as tolerated Call your doctor if you observe: Fever of 101 or Higher, Inability to urinate, Inability to have a bowel movement, Shortness of breath, Dizziness, Fainting spells, Chest pain, Uncontrolled pain Instructions: COPD: Using Inhalers, Discharge Instructions: COPD, Treatment for COPD, What is COPD?, Understanding Urinary Tract Infections (UTIs), ED UTI Cystitis Male, What Is Type 2 Diabetes?, Using a Blood Sugar Log, Oral Medications for Type 2 Diabetes, Healthy Meals for Diabetes, Eating Out When You Have Diabetes, Exercise to Manage Your Blood Sugar, Diabetes: Keeping Feet Healthy, Diabetes: Inspecting Your Feet, Diabetes: Shopping for and Preparing Meals, Diabetes: Caring for Your Body, Diabetes: Sick-Day Plan, Resources for People with Diabetes, Why Do You Smoke?, Planning to Quit Smoking, Getting Support for Quitting Smoking, Coping with Smoking Withdrawal, Staying Smoke-Free Additional Instructions: During your admission you were treated for possible urinary tract infection and concern for pulmonary infection with possible underlying chronic pulmonary disease (COPD) given tobacco use history and chronic changes on imaging. Please once current regimen completed follow-up with pulmonary to be evaluated and have pulmonary function testing performed. During the admission you were noted to have frequently elevated blood sugars therefore more complete testing for diabetes was performed and notable. You have been started at discharge on an oral diabetic medication. This will be started at a low dose twice daily as their are often initially gastrointestinal side effects which usually improve over time and then the medication can be increased to goal. You will need to have your HgbA1c trended with your primary care physician to assess improvement. Lifestyle and diet changes are vital to reducing your blood sugar. Please follow with your primary care physician to also obtain referral to the Diabetic Clinic to follow and aggressively manage your diabetes. Allergies/Adverse Reactions: Allergies clopidogrel [From Plavix] Allergy (Mild, Verified 07/09/17 03:07) rash Medications to take at Discharge aspirin 81 mg tablet,delayed release 81 mg PO QDAY tab 05/21/17 Albuterol IH (ProAir) [Proair Hfa] 1 - 2 puff INHALATION Q4H PRN PRN #1 inhaler 07/10/17 Cefdinir [Omnicef [equiv]] 300 mg PO Q12H 7 Days #14 cap 07/10/17 Metformin HCl [Glucophage] 500 mg PO BIDCM #60 tab 07/10/17 Prednisone [Deltasone] 40 mg PO DAILY 5 Days #10 tab 07/10/17 The following prescriptions were given: Albuterol IH (ProAir) [Proair Hfa] 1 - 2 puff INHALATION Q4H PRN PRN #1 inhaler PRN Reason: Dyspnea, wheezing Cefdinir [Omnicef [equiv]] 300 mg PO Q12H 7 Days #14 cap Prednisone [Deltasone] 40 mg PO DAILY 5 Days #10 tab Metformin HCl [Glucophage] 500 mg PO BIDCM #60 tab Primary Care Physician: Pee Kohler [Primary Care Provider] - Please follow up with your Primary Care Physician in: Follow-up within 3-5 days to review admit, new medication. Please Follow Up With: Diabetic Clinic When: Please obtain referral from your primary care. Please Follow Up With: Chi Prince DO When: F/U 2-4 weeks for assessment for possible underlying COPD, PFTs. Proposed Discharge Date: 07/10/17
--- NOTE | 2017-07-10 10:51 | PCM.DC.SUM ---
Discharge Date and Diagnosis - Problem List Patient Problems: Active and Suspected Problems (Last Reviewed 06/17/17 @ 09:53 by Francesca Hall) COPD exacerbation (Acute) UTI (urinary tract infection) (Acute) Date of Admission: 07/09/17 Date of Discharge: 07/10/17 - Primary Discharge Diagnosis Active and Suspected Problems (Last Reviewed 06/17/17 @ 09:53 by Francesca Hall) (1) Severe Sepsis suspected secondary to Acute on Possibly Chronic COPD Exacerbation w/ Acute Hypoxic Respiratory Failure and Possible Complicated UTI, UCx pending upon discharge (2) Hyperglycemia w/ Newly Diagnosed Diabetes mellitus type II (HgBA1c 7.5%) (3) Tobacco Abuse (4) CAD, History of [place] (5) Hyperlipidemia (6) PAD - Secondary Discharge Diagnosis Chronic Problems (Last Reviewed 06/17/17 @ 09:53 by Francesca Hall) Hyperlipidemia (Chronic) Atherosclerotic heart disease of [place] coronary artery without angina pectoris (Chronic) Old myocardial infarction (Chronic) Hospital Course and Treatment Operations: None Procedures: EKG Summary of Care Provided: The patient is a 66 y/o M w/ PMHx: Heavy Tobacco use Hx, Suspected Underlying Chronic COPD, Hx [place], HLD, PAD who presented to the [facility] ED on 07/09/17 with history of progressively worsening dyspnea with labored breathing noted per and EMS ongoing for the last 2 days, worsening with no associated marketed cough, productive sputum or fevers or chills at that time however upon ED presentation patient temperature 102.8, tachycardic and tachypneic with a pulse oximeter of 91% on room air. In the ED, work-up concerning for Severe Sepsis suspected secondary to Acute on Chronic COPD Exacerbation w/ Acute Hypoxic Respiratory Failure and Possible Complicated UTI w/ also noted ABG w/ pO2 71, pCO2 29.8, CXR w/ chronic changes w/ repeat PA and Lateral w/ no acute process but notable chronic changes, CBC on admission w/ 9.8 with L shift, LA 3.1-->2.8-->3.1-->eventually resolved 1.2 following additional IVF bolus and continued MIVFs. Patient was maintained on ATC duonebs, PRN albuterol, IV methylprednisolone with prednisone transition given improvement, HOB, IS parameters, IV Azithromcyin and Rocephin with unremarkable sputum cultures, negative respiratory viral panel, negative urine antigens, pending Bld Cx x 2 and UCx given UA ? UTI also at discharge but patient insistent upon discharge given clinical improvement. Patient clinically improved and was weaned to room air, declining aerosols also per RT discussion, walking in the halls without desaturation and mental status per spouse returned to baseline. Patient given this improvement was discharged to home on regimen oral omnicef for possible UTI and concurrent possible COPD Exacerbation, short burst prednisone therapy given concurrently recent dx Diabetes mellitus type II (HgbA1c 7.5% during admission) w/ diabetic education performed, PRN albuterol inhaler and metformin 500 mg BID w/ additionally glucometer rx, nutrition education prior to discharge and encouraged PCP as well as Diabetic Clinic referral per PCP at follow-up encouraged. Encouraged tobacco cessation, inpatient consultation per RT. Additionally encouraged follow-up with Pulmonary for assessment of suspected possible COPD once clinically resolved from current acute presentation. DAY OF DISCHARGE PROGRESS NOTE: Subjective: Patient without acute event overnight per self and nursing report. Patient mental status now baseline, confirmed per spouse, no dyspnea or shortness of breath and no abdominal pain complaints. Patient denies fever, chills, nausea, emesis, chest pain. Patient agreeable to discharge to home. Oxygenation testing unremarkable for O2 needs upon testing prior to discharge. Patient will be discharged with follow-up with primary care physician within 3-5 days in addition to recommended consideration evaluation per Dr. Prince/Pulmonary for suspected underlying chronic lung disease. Objective: T 97.8, heart rate 60, BP 127/60, respiratory rate 18, 94% on room air. Physical Examination: General: awake, alert, oriented x 3 and cooperative, seated upright in the bed, NAD. Skin: normal color, turgor, no icterus, cyanosis. HEENT: AT/NC, EOMI, PERRLA, MMM. Lungs: Diminished BS bases, moderate effort, no wheezing. Heart: Regular rate and rhythm; no gallop, rub audible. Abdomen: soft, NTTP, ND, normal BS. Extremities: no cyanosis, clubbing, or edema. Neurological: patient awake, alert, oriented x 3; cognitive function appears intact upon questioning,; pupils equally reactive to light and accomodation; cranial nerves II-XII grossly normal, moving all 4 extremities, strength appropriate. Psychiatric: affect appears normal, no acute evidence of depressive or anxiety feelings. Assessment and Plan: Please see hospital summary above. Discharge Activity: - - Avoid aggressive activity until completed steroid taper and antibiotic therapy or cleared per your primary care physician. May resume sexual activity in: 10-14 days Weight Bearing Status: Weight bearing as tolerated Call your doctor if you observe: Fever of 101 or Higher, Inability to urinate, Inability to have a bowel movement, Shortness of breath, Dizziness, Fainting spells, Chest pain, Uncontrolled pain Home Medications: Medications to take at Discharge aspirin 81 mg tablet,delayed release 81 mg PO QDAY tab 05/21/17 Albuterol IH (ProAir) [Proair Hfa] 1 - 2 puff INHALATION Q4H PRN PRN #1 inhaler 07/10/17 Cefdinir [Omnicef [equiv]] 300 mg PO Q12H 7 Days #14 cap 07/10/17 Metformin HCl [Glucophage] 500 mg PO BIDCM #60 tab 07/10/17 Prednisone [Deltasone] 40 mg PO DAILY 5 Days #10 tab 07/10/17 Following Prescrptions Were Given to Patient: Albuterol IH (ProAir) [Proair Hfa] 1 - 2 puff INHALATION Q4H PRN PRN #1 inhaler PRN Reason: Dyspnea, wheezing Cefdinir [Omnicef [equiv]] 300 mg PO Q12H 7 Days #14 cap Prednisone [Deltasone] 40 mg PO DAILY 5 Days #10 tab Metformin HCl [Glucophage] 500 mg PO BIDCM #60 tab Other Amb Orders: Glucometer Location: None Selected Primary Care Physician: Pee Kohler [Primary Care Provider] - Please follow up with your Primary Care Physician in: Follow-up within 3-5 days to review admit, new medication. Please Follow Up With: Diabetic Clinic When: Please obtain referral from your primary care. Please Follow Up With: Chi Prince DO When: F/U 2-4 weeks for assessment for possible underlying COPD, PFTs. Patient Instructions: Using a Blood Sugar Log, Resources for People with Diabetes, What Is Type 2 Diabetes?, Oral Medications for Type 2 Diabetes, Healthy Meals for Diabetes, Eating Out When You Have Diabetes, Exercise to Manage Your Blood Sugar, Diabetes: Keeping Feet Healthy, Diabetes: Inspecting Your Feet, Diabetes: Shopping for and Preparing Meals, Diabetes: Caring for Your Body, Diabetes: Sick-Day Plan, What is COPD?, Understanding Urinary Tract Infections (UTIs), Why Do You Smoke?, Planning to Quit Smoking, Getting Support for Quitting Smoking, Coping with Smoking Withdrawal, Staying Smoke-Free, Discharge Instructions: COPD, COPD: Using Inhalers, Treatment for COPD, ED UTI Cystitis Male Disposition: Home Minutes spent on discharge:: 35 Patient Condition:: Fair Medical Necessity - Tobacco Use Smoking Status: Current every day smoker Tobacco Use: Cigarettes Meaningful Use Info Meaningful Use Diagnoses (Choose all that apply): None applicable Code Visit Inpatient E&M: 81892 Disch Hosp
--- NOTE | 2017-07-10 10:57 | DS.PCM_ITS ---
Discharge Date and Diagnosis - Problem List Patient Problems: Active and Suspected Problems (Last Reviewed 06/17/17 @ 09:53 by Francesca Hall) COPD exacerbation (Acute) UTI (urinary tract infection) (Acute) Date of Admission: 07/09/17 Date of Discharge: 07/10/17 - Primary Discharge Diagnosis Active and Suspected Problems (Last Reviewed 06/17/17 @ 09:53 by Francesca Hall) (1) Severe Sepsis suspected secondary to Acute on Possibly Chronic COPD Exacerbation w/ Acute Hypoxic Respiratory Failure and Possible Complicated UTI, UCx pending upon discharge (2) Hyperglycemia w/ Newly Diagnosed Diabetes mellitus type II (HgBA1c 7.5%) (3) Tobacco Abuse (4) CAD, History of HI (5) Hyperlipidemia (6) PAD - Secondary Discharge Diagnosis Chronic Problems (Last Reviewed 06/17/17 @ 09:53 by Francesca Hall) Hyperlipidemia (Chronic) Atherosclerotic heart disease of [place] coronary artery without angina pectoris (Chronic) Old myocardial infarction (Chronic) Hospital Course and Treatment Operations: None Procedures: EKG Summary of Care Provided: The patient is a 66 y/o M w/ PMHx: Heavy Tobacco use Hx, Suspected Underlying Chronic COPD, Hx HI, HLD, PAD who presented to the [facility] ED on 07/09/17 with history of progressively worsening dyspnea with labored breathing noted per and EMS ongoing for the last 2 days, worsening with no associated marketed cough, productive sputum or fevers or chills at that time however upon ED presentation patient temperature 102.8, tachycardic and tachypneic with a pulse oximeter of 91% on room air. In the ED, work-up concerning for Severe Sepsis suspected secondary to Acute on Chronic COPD Exacerbation w/ Acute Hypoxic Respiratory Failure and Possible Complicated UTI w/ also noted ABG w/ pO2 71, pCO2 29.8, CXR w/ chronic changes w/ repeat PA and Lateral w/ no acute process but notable chronic changes, CBC on admission w/ 9.8 with L shift, LA 3.1-->2.8- ->3.1-->eventually resolved 1.2 following additional IVF bolus and continued MIVFs. Patient was maintained on ATC duonebs, PRN albuterol, IV methylprednisolone with prednisone transition given improvement, HOB, IS parameters, IV Azithromcyin and Rocephin with unremarkable sputum cultures, negative respiratory viral panel, negative urine antigens, pending Bld Cx x 2 and UCx given UA ? UTI also at discharge but patient insistent upon discharge given clinical improvement. Patient clinically improved and was weaned to room air, declining aerosols also per RT discussion, walking in the halls without desaturation and mental status per spouse returned to baseline. Patient given this improvement was discharged to home on regimen oral omnicef for possible UTI and concurrent possible COPD Exacerbation, short burst prednisone therapy given concurrently recent dx Diabetes mellitus type II (HgbA1c 7.5% during admission) w/ diabetic education performed, PRN albuterol inhaler and metformin 500 mg BID w/ additionally glucometer rx, nutrition education prior to discharge and encouraged PCP as well as Diabetic Clinic referral per PCP at follow-up encouraged. Encouraged tobacco cessation, inpatient consultation per RT. Additionally encouraged follow-up with Pulmonary for assessment of suspected possible COPD once clinically resolved from current acute presentation. DAY OF DISCHARGE PROGRESS NOTE: Subjective: Patient without acute event overnight per self and nursing report. Patient mental status now baseline, confirmed per spouse, no dyspnea or shortness of breath and no abdominal pain complaints. Patient denies fever, chills, nausea, emesis, chest pain. Patient agreeable to discharge to home. Oxygenation testing unremarkable for O2 needs upon testing prior to discharge. Patient will be discharged with follow-up with primary care physician within 3- 5 days in addition to recommended consideration evaluation per Dr. Prince/ Pulmonary for suspected underlying chronic lung disease. Objective: T 97.8, heart rate 60, BP 127/60, respiratory rate 18, 94% on room air. Physical Examination: General: awake, alert, oriented x 3 and cooperative, seated upright in the bed, NAD. Skin: normal color, turgor, no icterus, cyanosis. HEENT: AT/NC, EOMI, PERRLA, MMM. Lungs: Diminished BS bases, moderate effort, no wheezing. Heart: Regular rate and rhythm; no gallop, rub audible. Abdomen: soft, NTTP, ND, normal BS. Extremities: no cyanosis, clubbing, or edema. Neurological: patient awake, alert, oriented x 3; cognitive function appears intact upon questioning,; pupils equally reactive to light and accomodation; cranial nerves II-XII grossly normal, moving all 4 extremities, strength appropriate. Psychiatric: affect appears normal, no acute evidence of depressive or anxiety feelings. Assessment and Plan: Please see hospital summary above. Discharge Activity: - - Avoid aggressive activity until completed steroid taper and antibiotic therapy or cleared per your primary care physician. May resume sexual activity in: 10-14 days Weight Bearing Status: Weight bearing as tolerated Call your doctor if you observe: Fever of 101 or Higher, Inability to urinate, Inability to have a bowel movement, Shortness of breath, Dizziness, Fainting spells, Chest pain, Uncontrolled pain Home Medications: Medications to take at Discharge aspirin 81 mg tablet,delayed release 81 mg PO QDAY tab 05/21/17 Albuterol IH (ProAir) [Proair Hfa] 1 - 2 puff INHALATION Q4H PRN PRN #1 inhaler 07/10/17 Cefdinir [Omnicef [equiv]] 300 mg PO Q12H 7 Days #14 cap 07/10/17 Metformin HCl [Glucophage] 500 mg PO BIDCM #60 tab 07/10/17 Prednisone [Deltasone] 40 mg PO DAILY 5 Days #10 tab 07/10/17 Following Prescrptions Were Given to Patient: Albuterol IH (ProAir) [Proair Hfa] 1 - 2 puff INHALATION Q4H PRN PRN #1 inhaler PRN Reason: Dyspnea, wheezing Cefdinir [Omnicef [equiv]] 300 mg PO Q12H 7 Days #14 cap Prednisone [Deltasone] 40 mg PO DAILY 5 Days #10 tab Metformin HCl [Glucophage] 500 mg PO BIDCM #60 tab Other Amb Orders: Glucometer Location: None Selected Primary Care Physician: Pee Kohler [Primary Care Provider] - Please follow up with your Primary Care Physician in: Follow-up within 3-5 days to review admit, new medication. Please Follow Up With: Diabetic Clinic When: Please obtain referral from your primary care. Please Follow Up With: Chi Prince DO When: F/U 2-4 weeks for assessment for possible underlying COPD, PFTs. Patient Instructions: Using a Blood Sugar Log, Resources for People with Diabetes, What Is Type 2 Diabetes?, Oral Medications for Type 2 Diabetes, Healthy Meals for Diabetes, Eating Out When You Have Diabetes, Exercise to Manage Your Blood Sugar, Diabetes: Keeping Feet Healthy, Diabetes: Inspecting Your Feet, Diabetes: Shopping for and Preparing Meals, Diabetes: Caring for Your Body, Diabetes: Sick-Day Plan, What is COPD?, Understanding Urinary Tract Infections (UTIs), Why Do You Smoke?, Planning to Quit Smoking, Getting Support for Quitting Smoking, Coping with Smoking Withdrawal, Staying Smoke-Free, Discharge Instructions: COPD, COPD: Using Inhalers, Treatment for COPD, ED UTI Cystitis Male Disposition: Home Minutes spent on discharge:: 35 Patient Condition:: Fair Medical Necessity - Tobacco Use Smoking Status: Current every day smoker Tobacco Use: Cigarettes Meaningful Use Info Meaningful Use Diagnoses (Choose all that apply): None applicable Code Visit Inpatient E&M: 27244 Disch Hosp
--- NOTE | 2017-07-12 15:55 | CASEMGMT ---
RN ALEXA Discharge Follow-up Phone Call: JANETT: Chauncey Strata: 3 Call Date: 07/12/17 Discharge Date: 07/12/17 Time of Call: [id number] Duration: 1 Min Admitting Diagnosis: COPD EXA, Possible UTI RN ALEXA attempted to complete follow-up phone to inquire how patient is feeling since discharge from hospital. No answer and voice message left with return contact information.
== END 2017-07-10 11:42 | disposition home or self-care (01) | DRG 871 ==
LOC: ED 03:42 → MS3 05:45
PROVIDERS: Admitting Provider Internal Medicine; Emergency Provider Emergency Medicine; Visit Provider Family Medicine
DX: A41.9 Sepsis, unspecified organism (principal); J96.01 Acute respiratory failure with hypoxia; J44.1 Chronic obstructive pulmonary disease with (acute) exacerbation; J44.0 Chronic obstructive pulmonary disease with (acute) lower respiratory infection; N39.0 Urinary tract infection, site not specified; R65.20 Severe sepsis without septic shock; J20.9 Acute bronchitis, unspecified; E11.65 Type 2 diabetes mellitus with hyperglycemia; I25.10 Atherosclerotic heart disease of native coronary artery without angina pectoris; I73.9 Peripheral vascular disease, unspecified; E78.5 Hyperlipidemia, unspecified; I25.2 Old myocardial infarction; Z79.82 Long term (current) use of aspirin; F17.210 Nicotine dependence, cigarettes, uncomplicated
CPT/HCPCS: 36415; 36600; 71045; 71046; 80048; 81001; 82803; 82962; 83036; 83605; 83880; 84484; 85025; 87040; 87070; 87086; 87205; 87449; 87633; 93005; 94640; 94667; 94668; 97802; 99285; 99406; J7030; A4216

== ENCOUNTER → 2018-05-02 07:31 | Outpatient (CLI) | payer OTHER, MEDICARE, SELFPAY ==
[2018-05-02 10:25] LABS: Color, Urine Yellow (Yellow); Glucose, Dipstick Normal (Normal); Ketone-Dipstick 5 mg/dl (Negative); Leukocyte Esterase-Dipstick 25 /ul (Negative); Nitrite-Dipstick Negative (Negative); Occult Blood-Urine Negative /ul (Negative); Protein-Dipstick 15 mg/dl (Negative); Urine Clarity Sl. Cloudy (Clear); Urine Urobilinogen 1 mg/dl (Normal)
[2018-05-02 10:26] LABS: Urine Bilirubin Dipstick 1 mg/dL (Negative)
[2018-05-02 10:33] LABS: AST(SGOT) 17 U/L (15-37); Alanine Aminotransfer ALT/SGPT 23 U/L (16-61); Albumin, Serum 3.6 g/dL (3.2-5.0); Alkaline Phosphatase 117 U/L (45-117); Anion Gap 8 (5-15); BUN 14 mg/dL (7-18); BUN/Creat Ratio 13.2 RATIO (10-20); Calcium,Total 8.5 mg/dL (8.5-10.1); Chloride 110 mmol/L (98-107); Cholesterol 184 mg/dL (200); Creatinine, Serum 1.06 mg/dL (0.70-1.30); EST Glomerular Filtration Rate 74 mL/min (>60); Est Glom Filt Rate - Afr Amer 89 mL/min (>60); Globulin 3.6 g/dL (2.2-4.2); Glucose 116 mg/dL (74-106); High Density Lipoprotein 38 mg/dL; PSA,Total - Annual Screen 2.81 ng/mL (0.00-4.00); Potassium 4.3 mmol/L (3.5-5.1); Protein, Total 7.2 g/dL (6.4-8.2); Sodium Level 144 mmol/L (136-145); Triglycerides 154 mg/dL; Very Low Density Lipoprotein 31 mg/dL (5-40)
[2018-05-02 11:11] LABS: Absolute Lymphocyte Count 2.83 X10^3/ul (0.83-4.51); Absolute Neutrophil Count 4.2 X10^3/uL (2.0-7.7); Basophil# 0.03 X10^3/uL; Basophil% 0.3 % (0-1); Eosinophil# 0.25 X10^3/uL; Eosinophils% 2.8 % (0-5); Hematocrit 47.5 % (40-54); Hemoglobin 15.9 g/dl (13.0-16.5); Lymphocyte # 2.83 X10^3/ul (4.0); Lymphocyte % 32.2 % (19-41); Mean Corp Hgb Conc 33.5 g/gl (32-36); Mean Corpuscular Hgb 30.5 pg (27.0-32.0); Mean Corpuscular Volume 91.2 fL (80-94); Mean Platelet Vol. 9.9 fl (6.2-12.0); Monocyte# 1.45 X10^3/uL; Monocyte% 16.5 % (0-10); Platelet Count 252 K/mm3 (150-450); RBC Distribution Width CV 14.9 % (11.6-14.6); RBC Distribution Width SD 48.8 fl (35.1-43.9); Red Blood Count 5.21 M/mm3 (4.6-6.2); White Blood Count 8.8 K/mm3 (4.4-11.0)
[2018-05-02 11:12] LABS: POSITIVE COUNT NO; POSITIVE DIFFERENTIAL NO; POSITIVE MORPHOLOGY NO
== END ==
PROVIDERS: Referring Provider Family Medicine; Visit Provider Family Medicine
DX: Z00.00 Encounter for general adult medical examination without abnormal findings (principal); I25.10 Atherosclerotic heart disease of native coronary artery without angina pectoris; E78.00 Pure hypercholesterolemia, unspecified; Z12.5 Encounter for screening for malignant neoplasm of prostate
CPT/HCPCS: 36415; 80053; 80061; 81002; 84153; 85025; G0103

== ENCOUNTER → 2018-05-14 07:26 | Outpatient (CLI) | payer OTHER, MEDICARE, SELFPAY ==
[2017-07-09 06:08] VITALS: BMI 27.2
[2018-05-14 09:00] LABS: Hemoglobin A1c 6.9 % (4.2-6.3)
== END ==
PROVIDERS: Referring Provider Family Medicine; Visit Provider Family Medicine
DX: R73.9 Hyperglycemia, unspecified (principal)
CPT/HCPCS: 36415; 83036

== ENCOUNTER → 2019-05-29 09:50 | Outpatient (CLI) | payer OTHER, MEDICARE, SELFPAY ==
[2019-01-24 15:05] VITALS: BMI 28.3
--- NOTE | 2019-05-29 10:40 | ART_ITS ---
Reason For Study: Atherosclerosis Procedure A bilateral lower extremity continuous wave Doppler with analog waveform analysis and ankle brachial indexes. Left Segmental Pressures Left brachial= 148mmHg. Left posterior tibial artery = 80mmHg. Left dorsalis pedis artery = 78mmHg. Right Segmental Pressures Right brachial= 161mmHg. Right posterior tibial artery = 157mmHg. Right dorsalis pedis artery = 156mmHg. Indices The right ankle brachial index by the posterior tibial artery is 0.98. The right ankle brachial index by the dorsalis pedis is 0.97. The left ankle brachial index by the posterior tibial artery is 0.50. The left ankle brachial index by the dorsalis pedis is 0.48. Interpretation Summary 1. right triphasic and foster 0.98 2. Left monophasic and foster 0.5. Ordering Physician: Dru Bird Referring Physician: Dru Bird Performed By: Jessica Pacheco RDCS/MARGOT
--- NOTE | 2019-05-29 10:41 | ADUL_ITS ---
Reason For Study: Atherosclerosis Left Velocities Ext Iliac Artery, dist = 39 cm./sec. Common Femoral Artery, dist = 57 cm./sec. No Flow noted Lt SFA throughout. Profunda Femoral Artery = 478 cm./sec. Popliteal Artery, proximal, = 19 cm./sec. Popliteal Artery, mid = 14 cm./sec. Post. Tibial Artery, prox = 11 cm./sec. Post Tibial Artery, mid = 17 cm./sec. Post Tibial Artery, dist. = 13 cm./sec. Peroneal Artery, mid = 6 cm./sec. Ant.Tibial Artery, prox = 11 cm./sec. Ant Tibial Artery, mid = 13 cm./sec. Ant. Tibial Artery, distal = 13 cm./sec. No flow noted Lt Pop A distal, Lt PeroA prox and distal. Procedure Exam performed in department. Interpretation Summary 1. Left SFA, distal popliteal and peroneal artery occluded. Ordering Physician: Dru Bird Referring Physician: Pee Kohler Performed By: Jessica Pacheco, LISA, RVT
== END ==
PROVIDERS: Referring Provider Surgery Vascular Surgery; Visit Provider Surgery Vascular Surgery
DX: I70.212 Atherosclerosis of native arteries of extremities with intermittent claudication, left leg (principal)
CPT/HCPCS: 93922; 93926

== ENCOUNTER 2019-07-19 06:26 | Day surgery (SDC) | payer OTHER, MEDICARE, SELFPAY ==
[2019-01-24 15:05] VITALS: BMI 28.3
[2019-07-18 09:28] VITALS: BMI 26.1
[2019-07-19 06:45] LABS: Hematocrit 45.4 % (40-54); Hemoglobin 14.9 g/dL (13.0-16.5); Mean Corp Hgb Conc 32.8 g/dL (32-36); Mean Corpuscular Hgb 29.9 pg (27.0-32.0); Mean Platelet Vol. 9.3 fl (6.2-12.0); Platelet Count 191 K/mm3 (150-450); RBC Distribution Width CV 14.7 % (11.6-14.6); RBC Distribution Width SD 48.6 fl (35.1-43.9); Red Blood Count 4.99 M/mm3 (4.6-6.2); White Blood Count 9.1 K/mm3 (4.4-11.0)
[2019-07-19 06:59] LABS: Albumin, Serum 3.7 g/dL (3.2-5.0); BUN 14 mg/dL (7-18); BUN/Creat Ratio 12.3 RATIO (10-20); Calcium,Total 8.7 mg/dL (8.5-10.1); Chloride 111 mmol/L (98-107); Creatinine, Serum 1.14 mg/dL (0.70-1.30); EST Glomerular Filtration Rate 67 mL/min (>60); Est Glom Filt Rate - Afr Amer 82 mL/min (>60); Estimated Creatinine Clearance 68.14 ml/min; Glucose 143 mg/dL (74-106); Phosphorus 2.3 mg/dL (2.5-4.9); Sodium Level 144 mmol/L (136-145)
--- NOTE | 2019-07-19 09:03 | OP.PCM_ITS ---
Problem List (1) PAD (peripheral artery disease) Status: Acute Report of Operation Date of Procedure: 07/19/19 Pre-Operative Diagnosis: PAD with critical limb ischemia Post-Operative Diagnosis: The same Surgery/Procedure Performed:: 1. Ultrasound-guided access retrograde right common femoral artery. 2. Left lower extremity angiogram with catheter placed into the popliteal order for the third order cannulation. 3. Balloon angioplasty of the common femoral to the profunda with a 5 and 6 mm balloon. 4. Balloon angioplasty entire SFA into the popliteal with a 5 mm balloon and post with a 5 x 150 drug-coated balloon x2 different balloons. 5. Closure with Star close Type of Anesthesia:: Sedation,Conscious Description of Procedure: Patient brought to the [employer]. Underwent the appropriate timeout consent. Underwent sedation. Prepped and draped in a sterile fashion. Did ultrasound- guided access retrograde in the right common femoral artery. Put in a 5 [place] sheath. We then got up and over the bifurcation. Did an angiogram from the left external iliac artery. Showed the common femoral artery widely patent. The entire SFA was occluded. Profunda had a proximal very severe stenosis. We got the wire through the profunda lesion and then brought in a longer 6 [place] sheath. We balloon from the common femoral artery through the profunda with a 5 x 80 and then a 6 x 40 balloon. Each inflation for over 2 minutes. Completion was much improved with much better flow through this and down through collateral flow. Then using a Kumpe catheter we got the wire into the SFA and switch to a quick cross catheter. We were able to get this through the entire occlusion confirm we are back into the popliteal artery. Previous angios showed the entire SFA and proximal popliteal were occluded. Collateral flow filling the popliteal to the mid segment were occluded again. Collateral from this filling the posterior tibial and anterior tibial artery and peroneal that appear to have flow all the way into the ankle and foot. Posterior tibial artery filled first and maybe was the main outflow to the foot. Although the anterior tibial artery also had a good caliber. Once we were confirm we are back and without popliteal lesions we replaced the wire and balloon through the entire SFA with a 5 x 200 balloon with 2 different inflations. Each for over 2 minutes. We then balloon through this entire area with a 5 x 150 drug-coated balloon and then a second 5 x 150 drug-coated balloon. Completion was improved with better flow down thr ough here and through collaterals. This should be enough to help ease his rest pain. The profunda will probably be his main source long-term. If he developed wounds or nonhealing sores consider a femoral to popliteal or tibioperoneal trunk bypass. We removed out the sheath put in a Star close deployed with good hemostasis. He was brought to recovery stable condition. Sedation: This 68-year-old gentleman underwent moderate sedation given by Dr. Dru Bird. He was monitored with EKG blood pressure and pulse ox for over the 30 minutes of the procedure. See the EMR for the complete record.
== END 2019-07-19 13:29 | disposition home or self-care (01) ==
LOC: CLSP 06:27
PROVIDERS: Referring Provider Surgery Vascular Surgery; Visit Provider Surgery Vascular Surgery
DX: I70.222 Atherosclerosis of native arteries of extremities with rest pain, left leg (principal); M19.90 Unspecified osteoarthritis, unspecified site; I25.2 Old myocardial infarction; F17.210 Nicotine dependence, cigarettes, uncomplicated; Z79.02 Long term (current) use of antithrombotics/antiplatelets; Z79.899 Other long term (current) drug therapy; K21.9 Gastro-esophageal reflux disease without esophagitis; I70.211 Atherosclerosis of native arteries of extremities with intermittent claudication, right leg; I11.9 Hypertensive heart disease without heart failure
CPT/HCPCS: 36245; 36415; 37224; 75710; 76937; 80069; 85027; 99152; 99153; C2623; J7040; Q9967; C1725; C1760; C1769; C1887; C1894

== ENCOUNTER → 2019-10-24 13:58 | Outpatient (CLI) | payer OTHER, MEDICARE, SELFPAY ==
[2019-07-18 09:28] VITALS: BMI 26.1
--- NOTE | 2019-10-24 14:01 | ART_ITS ---
Reason For Study: Atherosclerosis Procedure A bilateral lower extremity continuous wave Doppler with analog waveform analysis and ankle brachial indexes. Left Segmental Pressures Left brachial= 159mmHg. Left posterior tibial artery = 74mmHg. Left dorsalis pedis artery = 72mmHg. Left digit = 40 mmHg. The left dorsalis pedis waveforms are monophasic. The left posterior tibial artery waveforms are monophasic. Right Segmental Pressures Right brachial= 157mmHg. Right posterior tibial artery = 105mmHg. Right dorsalis pedis artery = 103mmHg. Right digit = 70 mmHg. The right dorsalis pedis waveforms are monophasic. The right posterior tibial artery waveforms are biphasic. Indices The right ankle brachial index by the dorsalis pedis is 0.65. The right ankle brachial index by the posterior tibial artery is 0.66. The right digital-brachial index is 0.44. The left ankle brachial index by the dorsalis pedis is 0.45. The left ankle brachial index by the posterior tibial artery is 0.47. The left digital-brachial index is 0.25. Interpretation Summary Bilateral moderate PAD with SIDNEY 0.66 and 0.47. Probable small vessel disease with DBI 0.44 and 0.25. Ordering Physician: Dru Bird Referring Physician: Antonio Kohler M.D. Performed By: Alexsandra Whitman RVT
== END ==
PROVIDERS: Referring Provider Surgery Vascular Surgery; Visit Provider Surgery Vascular Surgery
DX: I70.222 Atherosclerosis of native arteries of extremities with rest pain, left leg (principal); I70.213 Atherosclerosis of native arteries of extremities with intermittent claudication, bilateral legs
CPT/HCPCS: 93922

== ENCOUNTER → 2020-02-03 09:31 | Outpatient (CLI) | payer OTHER, MEDICARE, SELFPAY ==
[2019-07-18 09:28] VITALS: BMI 26.1
[2020-02-03 10:24] LABS: Absolute Lymphocyte Count 2.75 X10^3/uL (0.83-4.51); Absolute Neutrophil Count 4.9 X10^3/uL (2.0-7.7); Basophil# 0.03 X10^3/uL; Basophil% 0.3 % (0-1); Eosinophil# 0.28 X10^3/uL; Hematocrit 47.7 % (40-54); Hemoglobin 15.3 g/dL (13.0-16.5); Lymphocyte # 2.75 X10^3/ul (4.0); Lymphocyte % 29.3 % (19-41); Mean Corp Hgb Conc 32.1 g/dL (32-36); Mean Corpuscular Hgb 29.9 pg (27.0-32.0); Mean Corpuscular Volume 93.3 fL (80-94); Mean Platelet Vol. 9.7 fl (6.2-12.0); Monocyte# 1.37 X10^3/uL; Monocyte% 14.6 % (0-10); NRBC Flagged by Analyzer 0 % (0-5); Neutrophil # 4.91 X10^3/uL (2.7-7.7); Neutrophil % 52.5 % (47-70); Platelet Count 254 K/mm3 (150-450); RBC Distribution Width CV 14.6 % (11.6-14.6); Red Blood Count 5.11 M/mm3 (4.6-6.2); White Blood Count 9.4 K/mm3 (4.4-11.0)
[2020-02-03 10:42] LABS: ALB/GLOB Ratio 0.9 RATIO (0.9-2.4); AST(SGOT) 15 U/L (15-37); Alanine Aminotransfer ALT/SGPT 23 U/L (16-61); Albumin, Serum 3.7 g/dL (3.2-5.0); Alkaline Phosphatase 113 U/L (45-117); Anion Gap 3 (5-15); BUN 13 mg/dL (7-18); BUN/Creat Ratio 11.2 RATIO (10-20); Calcium,Total 8.8 mg/dL (8.5-10.1); Chloride 109 mmol/L (98-107); Cholesterol 202 mg/dL (200); Creatinine, Serum 1.16 mg/dL (0.70-1.30); EST Glomerular Filtration Rate 66 mL/min (>60); Est Glom Filt Rate - Afr Amer 80 mL/min (>60); Globulin 3.9 g/dL (2.2-4.2); Glucose 134 mg/dL (74-106); High Density Lipoprotein 39 mg/dL; PSA,Total - Annual Screen 2.96 ng/mL (0.00-4.00); Protein, Total 7.6 g/dL (6.4-8.2); Sodium Level 142 mmol/L (136-145); Triglycerides 194 mg/dL; Very Low Density Lipoprotein 39 mg/dL (5-40)
[2020-02-03 10:45] LABS: Hemoglobin A1c 6.9 % (3.8-5.6)
== END ==
PROVIDERS: Referring Provider Family Medicine; Visit Provider Family Medicine
DX: Z00.00 Encounter for general adult medical examination without abnormal findings (principal); E78.00 Pure hypercholesterolemia, unspecified; I25.10 Atherosclerotic heart disease of native coronary artery without angina pectoris; R73.9 Hyperglycemia, unspecified; Z12.5 Encounter for screening for malignant neoplasm of prostate
CPT/HCPCS: 36415; 80053; 80061; 83036; 84153; 85025; G0103

== ENCOUNTER 2020-07-09 10:00 | Outpatient (RCR) | payer OTHER, MEDICARE, SELFPAY ==
[2019-07-18 09:28] VITALS: BMI 26.1
--- NOTE | 2020-07-02 11:28 | HP.PTEVAL ---
Patient's Visit Information JANINE BLAIR is a 69 year old M referred to Physical Therapy by Dr. Pee Kohler MD with a diagnosis of Balance Disorder. Date of Evaluation: 07/02/20 Physical Therapist: Maude Nice DPT - Visit Plan Frequency: 1x/Week Duration: 4 Weeks Plan: Gait Belt. Balance Assessment. Focus on LE and core strength/stabilization with functional mobility. HEP Given IE Kitchen Sink Exercises: mini squats, Hip abduction, marching, HR/TR- educated to do with kitchen sink to hold onto for balance/safety - Subjective Patient reports that he has a problem with his balance- 4-5 months- insidious onset- progressing. He does fall- challenges to get back up in an open space. 1-2x a month- normally falls forwards- reaching to far forwards. Has both a cane and a walker but does not want to use them. Occasionally he will use a cane if he is not feeling really secure. Last time he fell was about 3-4 weeks ago but he catches himself a lot. Feels that his legs are weak- both the same. No pain in LE or lumbar spine. He feels that he should have been more active. No N/T in the feet. Lives with his - with stairs and he uses then frequently-hand rail. He tends to be very sedentary at home. If he eats regularly he feels much better. No dizziness but does report blurred vision (he needs new glasses). DOes report that he has a very bad disc in his lumbar spine but the one in his cervical spine is more bothersome. PMHx/Meds: see list - Objective Posture: FH, RS- can correct with verbal cues but does not maintain. Gait: slightly ataxic- veers to the right with shortened stride length and shuffles the right foot. Forward lean. HR/TR: able with UE A. Transfer from chair without UE A-Sit to Stand: 11 in 30 sec with hands on knees. Palpatoin: not tender. Sensation: WFL to gross touch bilaterally. Reflex: patellar 2+ bilateral. Stairs: asc with step to pattern with 1 HR, Descend with recip pattern 2 HR and poor foot placement SBA from therapist for safety. Strength: Ankle: 4+/5, Knee: 4/5, Hip: left: flexion- 4/5, Abd: 4+/5, Extn: 4/5 Right: flexion- 4-/5, Abd: 4/5, Extn: 4-/5, Core: poor. Special Test: TU.38 with SBA for safety. Balance: see FGA - Balance Scores Functional Gait Assessment Score: 10 % Disability: 66.6700 - Goals Goal 1:: Patient will be I with HEP and progression Goal Time Frame: 4-6 Weeks Goal 2:: Patient will improve his FGA by 4 points Goal Time Frame: 4-6 Weeks Goal 3:: Patient will asc/desc 8 stairs recip with 1 HR Goal Time Frame: 4-6 Weeks Goal 4:: Patient will ambulate >300 feet on uneven surafaces with LRD and no LOB Goal Time Frame: 4-6 Weeks - Rehabilitation Potential Physical Therapy Diagnosis: Patient presents with hypomobility- he has decreased strength, flex, proprioception and muscular endurance leading to poor balance, falls and decreased ability to safely perform ADL's. Rehabilitation Potential: Fair - Anticipated Interventions Patient/Client Instruction: Educate patient on: Benefits of Fitness Program Therapeutic Exercise to Include: Strength training, Endurance training, Balance training, Agility training, Body mechanics, Postural training, Flexibilty training, Gait and locomotor training, Neuromotor development, Dynamic Lumbar Stabilization For the Purpose of:: To improve muscle performance and motor function Functional Training to Include: ADL Training, Gait training Thank you for the opportunity to evaluate your patient. For Medicare and Medicare HMO plans, please review the plan of care and approve it. It will need to be FAXED BACK to us at [phone] for Medicare purposes. For Medicare only, by signing this I certify the plan of care. Please let me know if there are questions or concerns regarding this plan of care. Physician Signature: Date:
--- NOTE | 2020-07-04 10:23 | HP.PTCOM ---
PT Communication Note 07/04/[address] Pee Kohler MD , Thank you for the referral of Cal to [facility] for balance assessment. I have enclosed a copy of the results for your review. In sumaation, he scored low on the visual and vestibular portion of the Sensory Organization Test. He scored low on the right adn forward weight shifts on the Limits of Stability Test. He scored slow on the anterior musculature in the motor control test. With this in mind, I plan on adding balance exercises to address these deficits to his current plan of care. Please do not hesitate to call if there are questions. Thank you. Sincerely, GUS SteeleT, OCS, CSCS Contact Information
== END 2020-07-09 19:00 | disposition home or self-care (01) ==
LOC: PT 10:00
PROVIDERS: Referring Provider Family Medicine; Visit Provider Family Medicine
DX: R26.89 Other abnormalities of gait and mobility (principal)
CPT/HCPCS: 97110; 97162; 97750

== ENCOUNTER → 2021-01-17 09:54 | Outpatient (CLI) | payer OTHER, MEDICARE, SELFPAY ==
[2021-01-17 10:55] LABS: Absolute Lymphocyte Count 2.54 X10^3/uL (0.83-4.51); Absolute Neutrophil Count 6.4 X10^3/uL (2.0-7.7); Basophil# 0.03 X10^3/uL; Basophil% 0.3 % (0-1); Eosinophil# 0.23 X10^3/uL; Eosinophils% 2.2 % (0-5); Hematocrit 47.6 % (40-54); Hemoglobin 15.6 g/dL (13.0-16.5); Lymphocyte # 2.54 X10^3/ul (0.83-4.51); Lymphocyte % 23.9 % (19-41); Mean Corp Hgb Conc 32.8 g/dL (32-36); Mean Corpuscular Hgb 29.2 pg (27.0-32.0); Mean Platelet Vol. 9.5 fl (6.2-12.0); Monocyte# 1.43 X10^3/uL; Monocyte% 13.5 % (0-10); NRBC Flagged by Analyzer 0 % (0-5); Neutrophil # 6.37 X10^3/uL (2.7-7.7); Neutrophil % 59.8 % (47-70); Platelet Count 241 K/mm3 (150-450); RBC Distribution Width CV 14.8 % (11.6-14.6); RBC Distribution Width SD 47.5 fl (35.1-43.9); Red Blood Count 5.35 M/mm3 (4.6-6.2); White Blood Count 10.6 K/mm3 (4.4-11.0)
[2021-01-17 11:12] LABS: Hemoglobin A1c 7.7 % (3.8-5.6)
[2021-01-17 11:27] LABS: ALB/GLOB Ratio 0.9 RATIO (0.9-2.4); AST(SGOT) 17 U/L (15-37); Alanine Aminotransfer ALT/SGPT 23 U/L (16-61); Albumin, Serum 3.6 g/dL (3.2-5.0); Alkaline Phosphatase 119 U/L (45-117); Anion Gap 5 (5-15); BUN 17 mg/dL (7-18); BUN/Creat Ratio 13.7 RATIO (10-20); Calcium,Total 9.1 mg/dL (8.5-10.1); Chloride 107 mmol/L (98-107); Cholesterol 198 mg/dL (200); Creatinine, Serum 1.24 mg/dL (0.70-1.30); EST Glomerular Filtration Rate 61 mL/min (>60); Est Glom Filt Rate - Afr Amer 74 mL/min (>60); Globulin 4.2 g/dL (2.2-4.2); Glucose 159 mg/dL (74-106); High Density Lipoprotein 37 mg/dL; Potassium 4.2 mmol/L (3.5-5.1); Protein, Total 7.8 g/dL (6.4-8.2); Sodium Level 141 mmol/L (136-145); Triglycerides 165 mg/dL; Very Low Density Lipoprotein 33 mg/dL (5-40)
== END ==
PROVIDERS: Referring Provider Family Medicine; Visit Provider Family Medicine
DX: Z00.00 Encounter for general adult medical examination without abnormal findings (principal); I25.10 Atherosclerotic heart disease of native coronary artery without angina pectoris; R73.9 Hyperglycemia, unspecified; E78.00 Pure hypercholesterolemia, unspecified; I10 Essential (primary) hypertension; Z12.5 Encounter for screening for malignant neoplasm of prostate
CPT/HCPCS: 36415; 80053; 80061; 83036; 85025

== ENCOUNTER 2021-03-04 12:41 | Emergency (ER) | payer OTHER, MEDICARE, SELFPAY ==
[2021-03-04] VITALS (8 sets, daily range): BP systolic 127–166; BP diastolic 65–79; PULSE 60–88; RESP 15–18; TEMP 36.1–37; O2SAT 95–99; BMI 23.7
--- NOTE | 2021-03-04 13:08 | EX.ED.DYSGE1 ---
HPI History of Present Illness Chief Complaint: General Illness Informant: patient Onset/Context/Timing Onset: Yesterday Context: Gradual Onset Timing: Continuous Quality: Aching Location: Generalized Worsened by: Nothing Relieved by: Laying in bed Narrative Narrative: Patient presents with body aches and muscle aches that have been getting worse since yesterday. Patient states his tested positive for COVID-19 last night with a home test. Patient states he is aching is all over. Patient states it is better whenever he just lays in bed. Patient states it is worse whenever he is up and active. Patient admits to some pain in his neck and back. Patient denies any fevers or chills. Patient denies any chest pain or shortness of breath. Patient denies any cough. Patient admits to some mild blurred vision. [facility] Medical History (Updated 03/04/21 @ 15:[address] Fran Palma, ) Atherosclerotic heart disease of [place] coronary artery without angina pectoris COPD (chronic obstructive pulmonary disease) COPD exacerbation Hyperlipidemia Inguinal hernia of left side without obstruction or gangrene Ischemic cardiomyopathy Myocardial infarction greater than 8 weeks ago Old myocardial infarction PAD (peripheral artery disease) Tobacco abuse UTI (urinary tract infection) Home Medications aspirin 81 mg tablet,delayed release 81 mg PO QDAY tab 01/24/19 [History Last Taken Unknown] atorvastatin 40 mg tablet 40 mg PO DAILY #30 tab 01/24/19 [Rx Last Taken Unknown] cholecalciferol (vitamin D3) 2,000 unit PO DAILY 01/24/19 [History Last Taken Unknown] multivitamin 1 tab PO DAILY 01/24/19 [History Last Taken Unknown] nitroglycerin 0.4 mg sublingual tablet 0.4 mg SUBLINGUAL Q5-15M PRN #90 tab 01/24/19 [Rx Last Taken Unknown] cilostazol 100 mg PO BID 07/18/19 [History Last Taken Unknown] coenzyme Q10 100 mg PO DAILY 07/18/19 [History Last Taken Unknown] azithromycin See Rx Instructions .ROUTE .COMPLEX #6 tab 03/04/21 [Rx Last Taken Unknown] Allergy/AdvReac Type Severity Reaction Status Date / Time clopidogrel [From Plavix] Allergy Mild rash Verified 03/04/21 12:42 Family History Father Cancer lung CAD (coronary artery disease) History of coronary artery bypass surgery Surgical History history angioplasty left leg (~06/07/17) History of left heart catheterization (LHC) (~12/11/09) No pertinent past surgical history Social History Smoking Status: Current every day smoker tobacco type: cigarettes alcohol intake: never substance use type: does not use ROS ROS ED Constitutional Constitutional ED: Denies chills or fever(s) Eyes Eyes: Denies blurry vision or change in vision ENT ENT ED: Denies rhinorrhea or sore throat Cardiovascular Cardiovascular: Denies chest pain or palpitations Respiratory/Chest Respiratory/Chest: Denies cough or dyspnea Gastrointestinal Gastrointestinal: Denies nausea or vomiting Genitourinary Genitourinary ED: Denies dysuria or hematuria Musculoskeletal Musculoskeletal: Reports back pain, myalgias and neck pain Integumentary Denies abscess or rash Neurologic Neurologic: Denies headache(s) or weakness Allergic/Immunologic Allergic/Immunologic ED: Denies mouth swelling or urticaria EXAM Physical Exam Const Vital Signs: 03/04/21 12:42 03/04/21 12:44 03/04/21 13:44 Temperature 97 F L 97 F L 98.6 F Temperature Source Temporal Temporal Temporal Pulse Rate 67 67 60 Respiratory Rate 15 15 18 Respiratory Pattern Blood Pressure 153/72 H 153/72 H 166/79 H Blood Pressure Mean 99 99 108 Pulse Ox 99 99 95 Oxygen Delivery Method Room Air Room Air Room Air 03/04/21 14:00 03/04/21 14:30 03/04/21 14:45 Temperature 98 F Temperature Source Temporal Pulse Rate 60 88 64 Respiratory Rate 18 16 18 Respiratory Pattern Normal Blood Pressure 152/76 H 150/73 H Blood Pressure Mean 101 98 Pulse Ox 95 97 Oxygen Delivery Method Room Air Room Air 03/04/21 15:00 03/04/21 16:12 Temperature 98 F Temperature Source Temporal Pulse Rate 74 Respiratory Rate 18 Respiratory Pattern Blood Pressure 128/65 H 127/65 H Blood Pressure Mean 86 Pulse Ox 96 96 Oxygen Delivery Method Room Air Positive well nourished and well developed General Appearance ED: well developed HEENT Reports moist mucous membranes Neck supple and no JVD Resp normal respiratory effort and clear to auscultation bilaterally Cardio regular rate, regular rhythm and no murmurs GI normal to inspection, nondistended, normoactive bowel sounds and non-tender Palpation: soft Extremity normal to inspection General Extremety ED: Negative for edema or tenderness General Extremity: Negative for edema Neuro oriented x3, CN's II-XII intact bilaterally and no sensory deficits noted Sensorium / Orientation: alert Motor Exam: strength 5/5 throughout Psych mental status grossly normal Skin no rashes or lesions noted MDM MDM MDM Narrative Medical decision making narrative: COVID-19 rapid antigen was obtained and was negative. CBC and comprehensive metabolic profile were obtained and were essentially within normal limits. Lactate was normal. Portable chest x-ray was obtained. There is 1 view. On my interpretation, there is a early lingular infiltrate noted. There is no cardiomegaly noted. Bony thorax is normal. Radiologist also interpreted the x-ray and agrees. Since his spouse tested positive for COVID-19, we will obtain a COVID-19 PCR test. This was ordered and is pending. Patient wants to go home. Patient will get the results of his Covid PCR test at home. If his Covid test is negative, we will give him a prescription for Zithromax. If his Covid test is positive, patient will continue to monitor his pulse oximeter at home.. Patient was instructed return if worse in any way. Patient and family understand and are agreeable with the plan. All questions were answered. COVID-19 PCR test was negative. Patient was given a prescription for Zithromax Z-NISA. This was sent to his pharmacy. Lab Data Attestation: I reviewed the patient's lab results. Labs: Laboratory Results - last 24 hr 03/04/21 03/04/21 03/04/21 13:45 13:45 13:45 WBC 6.0 RBC 5.15 Hgb 15.1 Hct 46.3 MCV 89.9 MCH 29.3 MCHC 32.6 RDW Std Deviation 47.2 H RDW Coeff of Salome 14.3 Plt Count 200 MPV 9.8 Immature Gran % (Auto) 0.200 Neut % (Auto) 58.6 Lymph % (Auto) 14.2 L Gibson % (Auto) 25.0 H Eos % (Auto) 1.5 Baso % (Auto) 0.5 Absolute Neuts (auto) 3.5 Absolute Lymphs (auto) 0.85 Nucleated RBC % 0 Sodium 141 Potassium 3.9 Chloride 106 Carbon Dioxide 27.0 Anion Gap 8 BUN 14 Creatinine 1.15 Estim Creat Clear Calc 61.84 Est GFR (MDRD) Af Amer 80 Est GFR (MDRD) Non-Af 66 BUN/Creatinine Ratio 12.2 Glucose 126 H Lactic Acid 1.6 Calcium 8.8 Total Bilirubin 0.60 AST 16 ALT 25 Alkaline Phosphatase 116 Total Protein 7.5 Albumin 3.6 Globulin 3.9 Albumin/Globulin Ratio 0.9 COVID-19 (TERI) 03/04/21 14:50 WBC RBC Hgb Hct MCV MCH MCHC RDW Std Deviation RDW Coeff of Salome Plt Count MPV Immature Gran % (Auto) Neut % (Auto) Lymph % (Auto) Gibson % (Auto) Eos % (Auto) Baso % (Auto) Absolute Neuts (auto) Absolute Lymphs (auto) Nucleated RBC % Sodium Potassium Chloride Carbon Dioxide Anion Gap BUN Creatinine Estim Creat Clear Calc Est GFR (MDRD) Af Amer Est GFR (MDRD) Non-Af BUN/Creatinine Ratio Glucose Lactic Acid Calcium Total Bilirubin AST ALT Alkaline Phosphatase Total Protein Albumin Globulin Albumin/Globulin Ratio COVID-19 (TERI) Not Detected Radiography Chest X-Ray - ED: 1 View, Read by ED Physician, Read by Radiologist and Left Infiltrate Diagnostic Testing: Clinical Impression(s) from Imaging Studies Chest X-Ray 03/04/21 14:06 IMPRESSION: Early lingular infiltrate. Electronically Signed: Srinivasan De Los Santos MD at 14:21 EST , Service support , Discharge Plan Triage Chief Complaint: General Illness ED Provider: Fran Palma Dx/Rx/DC Orders Clinical Impression: Pneumonia Instructions: ED Pneumonia (Adult) Prescriptions: New azithromycin 250 mg tablet See Rx Instructions .ROUTE .COMPLEX Qty: 6 RF: 0 No Action multivitamin Tablet 1 tab PO DAILY RF: 0 cholecalciferol (vitamin D3) 2,000 unit/drop drops 2,000 unit PO DAILY RF: 0 aspirin 81 mg tablet,delayed release (DR/EC) 81 mg PO QDAY RF: 0 atorvastatin 40 mg tablet 40 mg PO DAILY Qty: 30 RF: 11 nitroglycerin 0.4 mg tablet, sublingual 0.4 mg SUBLINGUAL Q5-15M PRN (Reason: chest pain) Qty: 90 RF: 6 cilostazol 100 MG tablet 100 mg PO BID RF: 0 coenzyme Q10 100 MG capsule 100 mg PO DAILY RF: 0 Primary Care Provider: Pee Kohler Referrals: Pee Kohler [Primary Care Provider] - 3-5 Days Activity Restrictions/Additional Instructions: If your COVID-19 PCR test is positive, you have Covid. Continue to monitor your oxygen levels at home. Return if your breathing is worse in any way. If you are COVID-19 PCR test is negative, we will send a prescription for Zithromax to your pharmacy. Please go pick this up today. Disposition Disposition: Home, Self Care Discharge Date/Time: 03/04/21 16:13
[2021-03-04] MEDS: Acetaminophen 500 MG Tablet 1000 MG PO (13:56)
[2021-03-04 14:03] LABS: Absolute Lymphocyte Count 0.85 X10^3/uL (0.83-4.51); Absolute Neutrophil Count 3.5 X10^3/uL (2.0-7.7); Basophil# 0.03 X10^3/uL; Basophil% 0.5 % (0-1); Eosinophil# 0.09 X10^3/uL; Eosinophils% 1.5 % (0-5); Hematocrit 46.3 % (40-54); Hemoglobin 15.1 g/dL (13.0-16.5); Lymphocyte # 0.85 X10^3/ul (0.83-4.51); Lymphocyte % 14.2 % (19-41); Mean Corp Hgb Conc 32.6 g/dL (32-36); Mean Corpuscular Hgb 29.3 pg (27.0-32.0); Mean Corpuscular Volume 89.9 fL (80-94); Mean Platelet Vol. 9.8 fl (6.2-12.0); Monocyte# 1.49 X10^3/uL; NRBC Flagged by Analyzer 0 % (0-5); Neutrophil % 58.6 % (47-70); Platelet Count 200 K/mm3 (150-450); RBC Distribution Width CV 14.3 % (11.6-14.6); RBC Distribution Width SD 47.2 fl (35.1-43.9); Red Blood Count 5.15 M/mm3 (4.6-6.2)
--- NOTE | 2021-03-04 14:06 | RAD_ITS ---
STUDY: X-RAY CHEST REASON FOR EXAM: Male, 70 years old. Cough. Muscle aches. TECHNIQUE: Single AP portable view of the chest. COMPARISON: Comparison is made with prior study dated 07/09/2017. FINDINGS: EKG electrodes are seen. Early lingular infiltrate. There is no demonstrated pleural abnormality. Normal size heart. Normal mediastinum and izabella. Normal visualized pulmonary arteries. There is atherosclerotic tortuosity of the aortic arch and descending thoracic aorta. There are diffuse degenerative changes of the visualized thoracic spine. Normal visualized ribs, clavicles, and shoulders. There is no demonstrated abnormality of the visualized soft tissue structures of the upper abdomen. RAD/Chest 1 View (Portable) IMPRESSION: Early lingular infiltrate. Electronically Signed: Srinivasan De Los Santos MD at 14:21 EST , Service support ,
[2021-03-04 14:12] LABS: ALB/GLOB Ratio 0.9 RATIO (0.9-2.4); AST(SGOT) 16 U/L (15-37); Alanine Aminotransfer ALT/SGPT 25 U/L (16-61); Albumin, Serum 3.6 g/dL (3.2-5.0); Alkaline Phosphatase 116 U/L (45-117); Anion Gap 8 (5-15); BUN 14 mg/dL (7-18); BUN/Creat Ratio 12.2 RATIO (10-20); Calcium,Total 8.8 mg/dL (8.5-10.1); Chloride 106 mmol/L (98-107); Creatinine, Serum 1.15 mg/dL (0.70-1.30); EST Glomerular Filtration Rate 66 mL/min (>60); Est Glom Filt Rate - Afr Amer 80 mL/min (>60); Estimated Creatinine Clearance 61.84 ml/min; Globulin 3.9 g/dL (2.2-4.2); Glucose 126 mg/dL (74-106); Potassium 3.9 mmol/L (3.5-5.1); Protein, Total 7.5 g/dL (6.4-8.2); Sodium Level 141 mmol/L (136-145)
[2021-03-04 14:22] LABS: Lactic Acid 1.6 mmol/L (0.4-1.9)
== END 2021-03-04 16:13 | disposition home or self-care (01) ==
PROVIDERS: Emergency Provider Emergency Medicine
DX: J18.9 Pneumonia, unspecified organism (principal); I25.10 Atherosclerotic heart disease of native coronary artery without angina pectoris; I25.2 Old myocardial infarction; F17.210 Nicotine dependence, cigarettes, uncomplicated
CPT/HCPCS: 71045; 80053; 83605; 85025; 87426; 87635; 94640; 99284; J7030; U0005; A4216; U0003